=== PATIENT | female | born 1985 | race Caucasian/White ===

== ENCOUNTER 2016-06-22 19:17 | Inpatient (IN) | payer BC ==
[2016-06-22] MEDS ORDERED: Sodium Chloride 0.9% 10 ML Syringe FLUSH PRN (20:12)
[2016-06-22] MEDS ORDERED: Nalbuphine 20 MG/1 ML Amp IVPUSH PRN (20:12)
[2016-06-22] MEDS ORDERED: Acetaminophen 325 MG Tab PO PRN (20:12)
[2016-06-22] MEDS ORDERED: Ondansetron 4 MG/2 ML SDV IVPUSH PRN (20:12)
[2016-06-22] MEDS ORDERED: Oxytocin/Lactated Ringers 10 UNIT/1,000 ML BAG IV SCH (20:15)
[2016-06-22] MEDS ORDERED: Penicillin G Potassium 5 MILLUNITS in Sodium Chloride 0.9% 100 ML IV ONE (20:15)
--- NOTE | 2016-06-22 20:29 | PCM.LDHP ---
L&D History of Present Illness - General Date of Service: 06/22/16 Admit Problem/Dx: Patient Status Order with Admit Dx/Problem 06/22/16 20:13 Patient Status [ADT] Routine Patient Status: Refer to Observation Admission Diagnosis/Problem: Twin Reason for Admit: preeclampsia Nurse Unit Type: Labor and Delivery Admitting Physician: Rhonda Zamora Attending Physician: Rhonda Zamora Medicare 96 Hour Certification Statement: This Patient is Admitted for Inpatient Services and is Medically Appropriate and Meets Medical Necessity for Inpatient Admission. I Reasonably Expect the Patient Will Require Inpatient Services That Span a Period of Time Over 2 Midnights. My Rationale for Medically Necessary Inpatient Care Will Be Found in the Admission History & Physical and Progress Notes. I Reasonably Expect the Patient to be Discharged or Transferred Within 96 Hours After Admission to This [facility] Hospital. Admission Diagnosis/Problem Admission Diagnosis/Problem Twin Source of Information: Patient History Limitations: Reports: No limitations - History of Present Illness Introduction:: Patient is a 31 y/o at 36 6/7 wks in a di-di twin gestation who presents tonight for IOL for gestational HTN. Has been doing very well this . In the last few weeks started to have some upper limit of normal BP's in clinic. Yesterday in clinic noted on/off symptoms of headaches. Was sent to L& D where serial BP's showed intermittent mild range values. Laboratory testing normal. She was counseled on findings and informed of need for IOL at 37 weeks. She is otherwise doing well. Notes good FM from both babies. No other concerns. 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: 0 - Infectious Disease History Infectious Disease History: Reports: Chicken pox - Past Surgical History HEENT Surgical History: Reports: Oral surgery Female Surgical History: Reports: Breast reconstruction Social & Family History - Family History Family Medical History: Noncontributory - Tobacco Use Smoking Status *Q: Never Smoker - Alcohol Use Alcohol Use History: No - Recreational Drug Use Recreational Drug Use: No H&P Review of Systems - Review of Systems: Review Of Systems: See Below General: Reports: no symptoms Pulmonary: Reports: No Symptoms Cardiovascular: Reports: no symptoms Gastrointestinal: Reports: No symptoms Genitourinary: Reports: no symptoms Musculoskeletal: Reports: no symptoms Psychiatric: Reports: no symptoms L&D Exam - Exam Exam: See Below - Vital Signs Weight: 68.039 kg - OB Specific Contraction Intensity: Irritability movement: active heart tones: present heart tones per min: 125 (A; 130 B) Heart Rate (FHR) Variability: Moderate (6-25 bmp) Presentation: Vertex (Vertex/Vertex) - Dyson Score Dyson Score Cervix Position: Midposition Dyson Score Consistency: Soft Dyson Score Effacement: >80% Dyson Score Dilation: 3-4 cm Dyson Score 's Station: -1 ,0 Dyson Score Total: 10 - Exam General: alert, oriented, cooperative Lungs: Clear to auscultation, Normal respiratory effort Cardiovascular: regular rate, regular rhythm Abdomen: soft Genitourinary: Normal external exam Back Exam: normal inspection Extremities: normal inspection Skin: warm, dry, intact - Patient Data Result Diagrams: 06/22/16 20:49 06/22/16 20:49 - Problem List (1) Gestational hypertension SNOMED Code(s): 59743879 ICD Code: O13.9 - GESTATIONAL HTN W/O SIGNIFICANT PROTEINURIA, UNSP TRIMESTER Status: Acute Current Visit: Yes Qualifiers: Trimester: third trimester Qualified Code(s): O13.3 - Gestational [ -induced] hypertension without significant proteinuria, third trimester (2) Dichorionic diamniotic twin gestation SNOMED Code(s): 21212915 ICD Code: O30.049 - TWIN , DICHORIONIC/DIAMNIOTIC, UNSP TRIMESTER Status: Acute Current Visit: Yes Qualifiers: Trimester: third trimester Qualified Code(s): O30.043 - Twin , dichorionic/diamniotic, third trimester (3) 37 weeks gestation of SNOMED Code(s): 21984088 ICD Code: Z3A.37 - 37 WEEKS GESTATION OF Status: Acute Current Visit: Yes (4) GBS (group B Streptococcus carrier), +RV culture, currently SNOMED Code(s): 46209005, 824152791 ICD Code: O99.820 - STREPTOCOCCUS B CARRIER STATE COMPLICATING Status: Acute Current Visit: Yes (5) choroid plexus cysts affecting antepartum care of mother SNOMED Code(s): 7298685, 374977346 ICD Code: O35.8XX0 - MATERNAL CARE FOR OTH ABNORMALITY AND DAMAGE, UNSP Status: Acute Current Visit: Yes Problem List Initiated/Reviewed/Updated: Yes Orders Last 24hrs: Active Orders 24 hr Category Date Time Status Patient Status [ADT] Routine ADT 06/22/16 20:13 Ordered Activity as Tolerated [RC] PFP Care 06/22/16 20:02 Ordered Communication Order [RC] ASDIRECTED Care 06/22/16 20:02 Ordered Communication Order [RC] ASDIRECTED Care 06/22/16 20:02 Ordered Heart Tones [RC] ASDIRECTED Care 06/22/16 20:13 Ordered Monitoring [RC] INTERMITTENT Care 06/22/16 20:02 Ordered Notify Provider [RC] ASDIRECTED Care 06/22/16 20:02 Ordered Notify Provider [RC] PFP Care 06/22/16 20:02 Ordered Notify Provider [RC] PRN Care 06/22/16 20:02 Ordered Peripheral IV Care [RC] . DIRECTED Care 06/22/16 20:13 Ordered Vaginal Exam [RC] ASDIRECTED Care 06/22/16 20:02 Ordered Vital Signs [RC] PER UNIT ROUTINE Care 06/22/16 20:02 Ordered Regular Diet [DIET] Diet 06/22/16 Dinner Ordered ALANINE AMINOTRANSFERASE,ALT [CHEM] Routine Lab 06/22/16 20:12 Ordered ASPARTATE AMNIOTRANSFERASE,AST [CHEM] Routine Lab 06/22/16 20:12 Ordered CBC W/O DIFF,HEMOGRAM [HEME] Routine Lab 06/22/16 20:12 Ordered CREATININE W/GFR [CHEM] Routine Lab 06/22/16 20:12 Ordered TYPE AND SCREEN [BBK] Routine Lab 06/22/16 20:12 Ordered Acetaminophen [Tylenol] Med 06/22/16 20:12 Ordered 650 mg PO Q4H PRN Lactated Ringers [Ringers, Lactated] 1,000 ml Med 06/22/16 20:15 Ordered IV ASDIRECTED Misoprostol [Cytotec] Med 06/22/16 21:29 Once 25 mcg VAG ONETIME ONE Nalbuphine [Nubain] Med 06/22/16 20:12 Ordered 10 mg IVPUSH Q2H PRN Ondansetron [Zofran] Med 06/22/16 20:12 Ordered 4 mg IVPUSH Q4H PRN Oxytocin/Lactated Ringers [Pitocin in LR 10 Units/1,000 Med 06/22/16 20:15 Ordered ML] 10 unit in 1,000 ml IV TITRATE Penicillin G Potassium [Pfizerpen] 2.5 millunits Med 06/22/16 20:15 Ordered Sodium Chloride 0.9% [Normal Saline] 100 ml IV Q4H Penicillin G Potassium [Pfizerpen] 5 millunits Med 06/22/16 20:15 Ordered Sodium Chloride 0.9% [Normal Saline] 100 ml IV ONETIME Sodium Chloride 0.9% [Saline Flush] Med 06/22/16 20:12 Ordered 10 ml FLUSH ASDIRECTED PRN Electronic Heart Tones Ext w TOCO [WOMSER] Oth 06/22/16 20:02 Ordered Routine Electronic Heart Tones Internal [WOMSER] Per Unit Ot 06/22/16 20:02 Ordered Routine Peripheral IV Insertion Adult [OM.PC] Routine Oth 06/22/16 20:02 Ordered Resuscitation Status Routine Resus Stat 06/22/16 20:01 Ordered Medication Orders Acetaminophen (Tylenol) 650 mg PO Q4H PRN PRN Reason: Pain (Mild 1-3) and fever Lactated Ringer's (Ringers, Lactated) 1,000 mls @ 40 mls/hr IV ASDIRECTED ASIM Oxytocin/Lactated Ringer's (Pitocin In Lr 10 Units/1,000 Ml) 10 unit in 1,000 mls @ 500 mls/hr IV TITRATE ASIM PRN Reason: Protocol Penicillin G Potassium 5 (millunits/ Sodium Chloride) 100 mls @ 55 mls/hr IV ONETIME ONE Stop: 06/22/16 22:04 Penicillin G Potassium 2.5 (millunits/ Sodium Chloride) 100 mls @ 55 mls/hr IV Q4H ASIM Nalbuphine HCl (Nubain) 10 mg IVPUSH Q2H PRN PRN Reason: Pain (moderate 4-6) Ondansetron HCl (Zofran) 4 mg IVPUSH Q4H PRN PRN Reason: Nausea/Vomiting Sodium Chloride (Saline Flush) 10 ml FLUSH ASDIRECTED PRN PRN Reason: Keep Vein Open Assessment/Plan Comment:: 31 y/o at 36 6/7 wks in di-di twin gestation presents for IOL for gestational HTN. Repeat labs on admission. Serial BP's. Discussed different methods of induction and patient ultimately feels most comfortable with cytotec. Will reassess after first dose to see how moving forward. Will need antibiotics for GBS positive status once in more active labor pattern. Pain management per her preference. Anticipate as twins are in VTX/VTX presentation. She is aware of risk for second twin or possible need for breech extractions. Last US done 06/21 showed A to be 2592 grams and B to be 2632. She did receive BMTZ on 06/14 and 06/15.
--- NOTE | 2016-06-22 21:09 | PCM.PREANE ---
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 Musculoskeletal History: Breast Implants - Infectious Disease History Infectious Disease History: Reports: Chicken pox - SUBSTANCE USE Smoking Status *Q: Never Smoker Tobacco Use Within Last Twelve Months: No Second Hand Smoke Exposure: No Recreational Drug Use History: No - HOME MEDS Home Medications: Home Meds Plexus 1 tab PO DAILY 12/04/15 [History] - CURRENT (IN HOUSE) MEDS Current Meds: Current Medications Acetaminophen (Tylenol) 650 mg PO Q4H PRN PRN Reason: Pain (Mild 1-3) and fever Lactated Ringer's (Ringers, Lactated) 1,000 mls @ 40 mls/hr IV ASDIRECTED ASIM Oxytocin/Lactated Ringer's (Pitocin In Lr 10 Units/1,000 Ml) 10 unit in 1,000 mls @ 500 mls/hr IV TITRATE ASIM PRN Reason: Protocol Penicillin G Potassium 5 (millunits/ Sodium Chloride) 100 mls @ 55 mls/hr IV ONETIME ONE Stop: 06/22/16 22:04 Penicillin G Potassium 2.5 (millunits/ Sodium Chloride) 100 mls @ 55 mls/hr IV Q4H ASIM Misoprostol (Cytotec) 25 mcg VAG ONETIME ONE Stop: 06/22/16 21:30 Nalbuphine HCl (Nubain) 10 mg IVPUSH Q2H PRN PRN Reason: Pain (moderate 4-6) Ondansetron HCl (Zofran) 4 mg IVPUSH Q4H PRN PRN Reason: Nausea/Vomiting Sodium Chloride (Saline Flush) 10 ml FLUSH ASDIRECTED PRN PRN Reason: Keep Vein Open Preanesthetic Assessment - ANESTHESIA/TRANSFUSION/FAMILY HX Anesthesia/Transfusion History: No Prior Transfusion(s), Prior Anesthesia Type of Anesthesia Reaction: Reports: Excessive Nausea/Vomiting Family History of Anesthesia Reaction: No Intubation History: Unknown Type of Transfusion Reactions: Reports: Unknown - REVIEW OF SYSTEMS Constitutional: Reports: no symptoms 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 Does not take any medications. ) GI: Reports: no symptoms (GERD controlled with TUMs) - PHYSICAL ASSESSMENT HR: 93 O2 Sat by Pulse Oximetry: 97 RR: 22 BP: 140/83 Temp: 36.9 C Height: 1.7 m Weight: 68.039 kg NPO Status Date: 06/22/16 NPO Status Time: 19:00 ASA Class: 2 Mental Status: Alert & Oriented x3 Airway Class: Mallampati = 1 Dentition: Reports: Normal Dentition Thyro-Mental Finger Breadths: 3 Mouth Opening Finger Breadths: 3 ROM/Head Extension: Full Respiratory Status: lungs clear to auscultation bilaterally Cardiovascular Status: regular rate & rhythm, normal S1, S2, no murmur, blood pressure WNL - ALLERGIES Allergies/Adverse Reactions: Allergies Allergy/AdvReac Type Severity Reaction Status Date / Time No Known Allergies Allergy Verified 12/04/15 18:13 - BLOOD Blood Available: No Product(s) Available: None - ANESTHESIA PLAN Preop Beta [place]: No Anesthesia Type Planned: Epidural - ACKNOWLEDGEMENTS Pt an Appropriate Candidate for the Planned Anesthesia: Yes Alternatives and Risks of Anesthesia Discussed w Pt/Guardian: Yes Pt/Guardian Understands and Agrees with Anesthesia Plan: Yes
[2016-06-22] MEDS ORDERED: Misoprostol 25 MCG (1/4 of 100 MCG) Tab VAG ONE (21:29)
[2016-06-23] MEDS ORDERED: Misoprostol 25 MCG (1/4 of 100 MCG) Tab ONE (03:03)
--- NOTE | 2016-06-23 06:54 | PCM.PNLD ---
Labor Progress Note - VS & Meds Vital Signs: Last Vital Signs Temp 36.9 C 06/22/16 21:12 Pulse 93 06/22/16 21:12 Resp 22 H 06/22/16 21:12 BP 140/83 06/22/16 21:12 Pulse Ox 97 06/22/16 21:12 Active Medications: Current Medications Acetaminophen (Tylenol) 650 mg PO Q4H PRN PRN Reason: Pain (Mild 1-3) and fever Lactated Ringer's (Ringers, Lactated) 1,000 mls @ 40 mls/hr IV ASDIRECTED ASIM Oxytocin/Lactated Ringer's (Pitocin In Lr 10 Units/1,000 Ml) 10 unit in 1,000 mls @ 500 mls/hr IV TITRATE ASIM PRN Reason: Protocol Penicillin G Potassium 2.5 (millunits/ Sodium Chloride) 100 mls @ 55 mls/hr IV Q4H ASIM Nalbuphine HCl (Nubain) 10 mg IVPUSH Q2H PRN PRN Reason: Pain (moderate 4-6) Ondansetron HCl (Zofran) 4 mg IVPUSH Q4H PRN PRN Reason: Nausea/Vomiting Sodium Chloride (Saline Flush) 10 ml FLUSH ASDIRECTED PRN PRN Reason: Keep Vein Open Discontinued Medications Penicillin G Potassium 5 (millunits/ Sodium Chloride) 100 mls @ 55 mls/hr IV ONETIME ONE Stop: 06/22/16 22:04 Misoprostol (Cytotec) 25 mcg VAG ONETIME ONE Stop: 06/22/16 21:30 Last Admin: 06/22/16 21:51 Dose: 25 mcg Misoprostol (Cytotec) Confirm Administered Dose 25 mcg .ROUTE .STK-MED ONE Stop: 06/23/16 03:04 Last Admin: 06/23/16 03:24 Dose: 25 mcg - Uterine Contractions Uterine Monitoring Mode: External [place] Contraction Intensity: Mild - Monitoring Monitor Mode: External Ultrasound Heart Rate (FHR) Baseline: 125 (A, B 130) Heart Rate (FHR) Variability: Moderate (6-25 bmp) Accelerations: Present, 15x15 Decelerations: None Strip Review: Category I - Labor Progress (Free Text) Labor Progress: Patient received 2 doses of cytotec overnight. Did not feel much cramping or pain. Will switch to pitocin this morning. Ampicillin to be started for GBS prophylaxis.
[2016-06-23] MEDS: Lactated Ringers 1,000 ML IV SCH ×5 (07:27→21:58)
[2016-06-23] MEDS ORDERED: Oxytocin/Lactated Ringers 10 UNIT/1,000 ML BAG IV SCH (07:30)
[2016-06-23] MEDS ORDERED: Ampicillin 2 GM in Sodium Chloride 0.9% 100 ML IV SCH (09:00)
[2016-06-23] MEDS: Penicillin G Potassium 2.5 MILLUNITS in Sodium Chloride 0.9% 100 ML IV SCH (09:01)
[2016-06-23] MEDS ORDERED: Penicillin G Potassium 5 MILLUNITS in Sodium Chloride 0.9% 100 ML IV ONE (09:15)
--- NOTE | 2016-06-23 09:51 | PCM.PNLD ---
Labor Progress Note - VS & Meds Vital Signs: Last Vital Signs Temp 36.9 C 06/22/16 21:12 Pulse 93 06/22/16 21:12 Resp 22 H 06/22/16 21:12 BP 140/83 06/22/16 21:12 Pulse Ox 97 06/22/16 21:12 Active Medications: Current Medications Acetaminophen (Tylenol) 650 mg PO Q4H PRN PRN Reason: Pain (Mild 1-3) and fever Lactated Ringer's (Ringers, Lactated) 1,000 mls @ 40 mls/hr IV ASDIRECTED ASIM Last Admin: 06/23/16 07:27 Dose: 40 mls/hr Oxytocin/Lactated Ringer's (Pitocin In Lr 10 Units/1,000 Ml) 10 unit in 1,000 mls @ 500 mls/hr IV TITRATE ASIM PRN Reason: Protocol Oxytocin/Lactated Ringer's (Pitocin In Lr 10 Units/1,000 Ml) 10 unit in 1,000 mls @ 12 mls/hr IV TITRATE ASIM; 2 MUNITS/MIN PRN Reason: Protocol Last Titration: 06/23/16 09:10 Dose: 6 munits/min, 36 mls/hr Ampicillin Sodium 2 gm/ Sodium (Chloride) 100 mls @ 200 mls/hr IV NOW [facility] Last Admin: 06/23/16 09:09 Dose: 200 mls/hr Ampicillin Sodium 1 gm/ Sodium (Chloride) 100 mls @ 200 mls/hr IV Q4H AISM Nalbuphine HCl (Nubain) 10 mg IVPUSH Q2H PRN PRN Reason: Pain (moderate 4-6) Ondansetron HCl (Zofran) 4 mg IVPUSH Q4H PRN PRN Reason: Nausea/Vomiting Sodium Chloride (Saline Flush) 10 ml FLUSH ASDIRECTED PRN PRN Reason: Keep Vein Open Discontinued Medications Penicillin G Potassium 5 (millunits/ Sodium Chloride) 100 mls @ 55 mls/hr IV ONETIME ONE Stop: 06/22/16 22:04 Last Admin: 06/23/16 09:00 Dose: Not Given Penicillin G Potassium 2.5 (millunits/ Sodium Chloride) 100 mls @ 55 mls/hr IV Q4H ASIM Last Admin: 06/23/16 09:01 Dose: Not Given Penicillin G Potassium 5 (millunits/ Sodium Chloride) 100 mls @ 55 mls/hr IV ONETIME ONE Stop: 06/23/16 11:04 Misoprostol (Cytotec) 25 mcg VAG ONETIME ONE Stop: 06/22/16 21:30 Last Admin: 06/22/16 21:51 Dose: 25 mcg Misoprostol (Cytotec) Confirm Administered Dose 25 mcg .ROUTE .STK-MED ONE Stop: 06/23/16 03:04 Last Admin: 06/23/16 03:24 Dose: 25 mcg - Uterine Contractions Uterine Monitoring Mode: External [place] Contraction Intensity: Mild to Moderate - Monitoring Monitor Mode: External Ultrasound Heart Rate (FHR) Baseline: 130 (A, B 130) Heart Rate (FHR) Variability: Moderate (6-25 bmp) Accelerations: Present, 15x15 Decelerations: None Strip Review: Category I - Vaginal Exam Dilation (cm): 3-4 Effacement (Percent): 80 Station: -1 Cervical Position: Midposition - Labor Progress (Free Text) Labor Progress: Patient doing well. Noticing some cramping with pitocin. AROM performed of baby A with release of clear fluid. Continue Ampicillin for GBS prophylaxis
[2016-06-23] MEDS ORDERED: ePHEDrine 50 MG/ML SDV IVPUSH PRN (11:24)
[2016-06-23] MEDS ORDERED: diphenhydrAMINE 50 MG/ML SDV IVPUSH PRN (11:24)
[2016-06-23] MEDS ORDERED: fentaNYL 100 MCG/2 ML SDV EPIDUR PRN (11:24)
[2016-06-23] MEDS ORDERED: Bupivacaine/fentaNYL/NS 100 ML Bag EPIDUR SCH (11:30)
--- NOTE | 2016-06-23 12:36 | PCM.PNLD ---
Labor Progress Note - VS & Meds Vital Signs: Last Vital Signs Temp 36.9 C 06/22/16 21:12 Pulse 93 06/22/16 21:12 Resp 22 H 06/22/16 21:12 BP 140/83 06/22/16 21:12 Pulse Ox 97 06/22/16 21:12 Active Medications: Current Medications Acetaminophen (Tylenol) 650 mg PO Q4H PRN PRN Reason: Pain (Mild 1-3) and fever Diphenhydramine HCl (Benadryl) 25 mg IVPUSH Q6H PRN PRN Reason: Itching Ephedrine Sulfate (Ephedrine Sulfate) 5 mg IVPUSH ASDIRECTED PRN PRN Reason: HYPOTENTSION Fentanyl (Sublimaze) 100 mcg EPIDUR Q3H PRN PRN Reason: PAIN Fentanyl/Bupivacaine HCl (Fentanyl/Bupivacaine/Ns 2 Mcg-0.125% 100 Ml) 100 ml EPIDUR ASDIRECTED ASIM Lactated Ringer's (Ringers, Lactated) 1,000 mls @ 40 mls/hr IV ASDIRECTED ASIM Last Admin: 06/23/16 07:27 Dose: 40 mls/hr Oxytocin/Lactated Ringer's (Pitocin In Lr 10 Units/1,000 Ml) 10 unit in 1,000 mls @ 500 mls/hr IV TITRATE ASIM PRN Reason: Protocol Oxytocin/Lactated Ringer's (Pitocin In Lr 10 Units/1,000 Ml) 10 unit in 1,000 mls @ 12 mls/hr IV TITRATE ASIM; 2 MUNITS/MIN PRN Reason: Protocol Last Titration: 06/23/16 10:28 Dose: 8 munits/min, 48 mls/hr Ampicillin Sodium 2 gm/ Sodium (Chloride) 100 mls @ 200 mls/hr IV NOW ASIM Last Admin: 06/23/16 09:09 Dose: 200 mls/hr Ampicillin Sodium 1 gm/ Sodium (Chloride) 100 mls @ 200 mls/hr IV Q4H ASIM Nalbuphine HCl (Nubain) 10 mg IVPUSH Q2H PRN PRN Reason: Pain (moderate 4-6) Ondansetron HCl (Zofran) 4 mg IVPUSH Q4H PRN PRN Reason: Nausea/Vomiting Sodium Chloride (Saline Flush) 10 ml FLUSH ASDIRECTED PRN PRN Reason: Keep Vein Open Discontinued Medications Penicillin G Potassium 5 (millunits/ Sodium Chloride) 100 mls @ 55 mls/hr IV ONETIME ONE Stop: 06/22/16 22:04 Last Admin: 06/23/16 09:00 Dose: Not Given Penicillin G Potassium 2.5 (millunits/ Sodium Chloride) 100 mls @ 55 mls/hr IV Q4H ASIM Last Admin: 06/23/16 09:01 Dose: Not Given Penicillin G Potassium 5 (millunits/ Sodium Chloride) 100 mls @ 55 mls/hr IV ONETIME ONE Stop: 06/23/16 11:04 Misoprostol (Cytotec) 25 mcg VAG ONETIME ONE Stop: 06/22/16 21:30 Last Admin: 06/22/16 21:51 Dose: 25 mcg Misoprostol (Cytotec) Confirm Administered Dose 25 mcg .ROUTE .STK-MED ONE Stop: 06/23/16 03:04 Last Admin: 06/23/16 03:24 Dose: 25 mcg - Uterine Contractions Uterine Monitoring Mode: External [place] Contraction Intensity: Moderate to Strong - Monitoring Monitor Mode: External Ultrasound Heart Rate (FHR) Baseline: 130 (A, B 135) Heart Rate (FHR) Variability: Moderate (6-25 bmp) Accelerations: Present, 15x15 Decelerations: Early Strip Review: Category I - Vaginal Exam Dilation (cm): 5 Effacement (Percent): 90 Station: 0 Cervical Position: Midposition - Labor Progress (Free Text) Labor Progress: Patient doing well. Feeling more uncomfortable with contractions. Continue present management.
[2016-06-23] MEDS: Ampicillin 1 GM in Sodium Chloride 0.9% 100 ML IV SCH ×3 (12:54→21:56)
--- NOTE | 2016-06-23 13:41 | PCM.PNLD ---
Labor Progress Note - VS & Meds Vital Signs: Last Vital Signs Temp 36.9 C 06/22/16 21:12 Pulse 93 06/22/16 21:12 Resp 22 H 06/22/16 21:12 BP 140/83 06/22/16 21:12 Pulse Ox 97 06/22/16 21:12 Active Medications: Current Medications Acetaminophen (Tylenol) 650 mg PO Q4H PRN PRN Reason: Pain (Mild 1-3) and fever Diphenhydramine HCl (Benadryl) 25 mg IVPUSH Q6H PRN PRN Reason: Itching Ephedrine Sulfate (Ephedrine Sulfate) 5 mg IVPUSH ASDIRECTED PRN PRN Reason: HYPOTENTSION Fentanyl (Sublimaze) 100 mcg EPIDUR Q3H PRN PRN Reason: PAIN Fentanyl/Bupivacaine HCl (Fentanyl/Bupivacaine/Ns 2 Mcg-0.125% 100 Ml) 100 ml EPIDUR ASDIRECTED ASIM Lactated Ringer's (Ringers, Lactated) 1,000 mls @ 40 mls/hr IV ASDIRECTED ASIM Last Admin: 06/23/16 07:27 Dose: 40 mls/hr Oxytocin/Lactated Ringer's (Pitocin In Lr 10 Units/1,000 Ml) 10 unit in 1,000 mls @ 500 mls/hr IV TITRATE ASIM PRN Reason: Protocol Oxytocin/Lactated Ringer's (Pitocin In Lr 10 Units/1,000 Ml) 10 unit in 1,000 mls @ 12 mls/hr IV TITRATE ASIM; 2 MUNITS/MIN PRN Reason: Protocol Last Titration: 06/23/16 10:28 Dose: 8 munits/min, 48 mls/hr Ampicillin Sodium 2 gm/ Sodium (Chloride) 100 mls @ 200 mls/hr IV NOW ASIM Last Admin: 06/23/16 09:09 Dose: 200 mls/hr Ampicillin Sodium 1 gm/ Sodium (Chloride) 100 mls @ 200 mls/hr IV Q4H ASIM Last Admin: 06/23/16 12:54 Dose: 200 mls/hr Nalbuphine HCl (Nubain) 10 mg IVPUSH Q2H PRN PRN Reason: Pain (moderate 4-6) Last Admin: 06/23/16 13:21 Dose: 10 mg Ondansetron HCl (Zofran) 4 mg IVPUSH Q4H PRN PRN Reason: Nausea/Vomiting Sodium Chloride (Saline Flush) 10 ml FLUSH ASDIRECTED PRN PRN Reason: Keep Vein Open Discontinued Medications Penicillin G Potassium 5 (millunits/ Sodium Chloride) 100 mls @ 55 mls/hr IV ONETIME ONE Stop: 06/22/16 22:04 Last Admin: 06/23/16 09:00 Dose: Not Given Penicillin G Potassium 2.5 (millunits/ Sodium Chloride) 100 mls @ 55 mls/hr IV Q4H [facility] Last Admin: 06/23/16 09:01 Dose: Not Given Penicillin G Potassium 5 (millunits/ Sodium Chloride) 100 mls @ 55 mls/hr IV ONETIME ONE Stop: 06/23/16 11:04 Misoprostol (Cytotec) 25 mcg VAG ONETIME ONE Stop: 06/22/16 21:30 Last Admin: 06/22/16 21:51 Dose: 25 mcg Misoprostol (Cytotec) Confirm Administered Dose 25 mcg .ROUTE .STK-MED ONE Stop: 06/23/16 03:04 Last Admin: 06/23/16 03:24 Dose: 25 mcg - Uterine Contractions Uterine Monitoring Mode: External [place] Contraction Intensity: Moderate to Strong - Monitoring Monitor Mode: External Ultrasound Heart Rate (FHR) Baseline: 130 (A, B 130) Heart Rate (FHR) Variability: Moderate (6-25 bmp) Accelerations: Present, 15x15 Decelerations: Early Strip Review: Category I - Vaginal Exam Dilation (cm): 6-7 Effacement (Percent): 90 Station: 0 Cervical Position: Midposition - Labor Progress (Free Text) Labor Progress: Patient doing well. Managing labor well. Received 1 dose of nubain. S/p 2nd dose of Ampicillin. Continue present management.
--- NOTE | 2016-06-23 15:23 | PCM.PREANE ---
Preanesthetic Assessment - Anesthesia/Transfusion/Family Hx Anesthesia History: Prior Anesthesia Without Reaction Family History of Anesthesia Reaction: No Type of Transfusion Reactions: Reports: Unknown - Review of Systems General: Fatigue Pulmonary: No Symptoms Cardiovascular: No Symptoms Gastrointestinal: No symptoms Neurological: Numbness (rosibel hands) Other: Reports: None - Physical Assessment NPO Status Date: 06/22/16 NPO Status Time: 19:00 Pulse: 93 O2 Sat by Pulse Oximetry: 97 Respiratory Rate: 22 Blood Pressure: 140/83 Temperature: 36.9 C Vital Signs: Last Vital Signs Temp 36.9 C 06/22/16 21:12 Pulse 93 06/22/16 21:12 Resp 22 H 06/22/16 21:12 BP 140/83 06/22/16 21:12 Pulse Ox 97 06/22/16 21:12 Height: 1.7 m Weight: 68.039 kg ASA Class: 2 Mental Status: Alert & Oriented x3 Airway Class: Mallampati = 1 Dentition: Reports: Normal Dentition Thyro-Mental Finger Breadths: 3 Mouth Opening Finger Breadths: 3 ROM/Head Extension: Full Lungs: Clear to auscultation, Normal respiratory effort Cardiovascular: Regular Rate, Regular Rhythm - Lab Values: Laboratory Last Values WBC 9.44 K/mm3 (3.98-10.04) 06/22/16 20:49 RBC 3.66 M/mm3 (3.98-5.22) L 06/22/16 20:49 Hgb 11.9 gm/L (11.2-15.7) 06/22/16 20:49 Hct 35.1 % (34.1-44.9) 06/22/16 20:49 MCV 95.9 fl (79.4-94.8) H 06/22/16 20:49 MCH 32.5 pg (25.6-32.2) H 06/22/16 20:49 MCHC 33.9 g/dl (32.2-35.5) 06/22/16 20:49 RDW Std Deviation 44.0 fL (36.4-46.3) 06/22/16 20:49 Plt Count 210 K/mm3 (182-369) 06/22/16 20:49 MPV 12.3 fl (9.4-12.3) 06/22/16 20:49 Creatinine 0.9 mg/dL (0.55-1.02) 06/22/16 20:49 Est Cr Clr Drug Dosing 86.46 mL/min 06/22/16 20:49 Estimated GFR (MDRD) > 60 mL/min (>60) 06/22/16 20:49 AST 19 U/L (15-37) 06/22/16 20:49 ALT 16 U/L (14-59) 06/22/16 20:49 Blood Type A POSITIVE 06/22/16 20:49 Gel Antibody Screen Negative 06/22/16 20:49 - Allergies Allergies/Adverse Reactions: Allergies Allergy/AdvReac Type Severity Reaction Status Date / Time No Known Allergies Allergy Verified 12/04/15 18:13 - Blood Blood Available: No Product(s) Available: None - Acknowledgements Anesthesia Type Planned: Epidural Pt an Appropriate Candidate for the Planned Anesthesia: Yes Alternatives and Risks of Anesthesia Discussed w Pt/Guardian: Yes Pt/Guardian Understands and Agrees with Anesthesia Plan: Yes PreAnesthesia Questionnaire 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: Reports: Other OB/BYN History: twins Other Musculoskeletal History: Breast Implants - Infectious Disease History Infectious Disease History: Reports: Chicken pox - Past Surgical History HEENT Surgical History: Reports: Oral surgery Female Surgical History: Reports: Breast reconstruction - SUBSTANCE USE Smoking Status *Q: Never Smoker Tobacco Use Within Last Twelve Months: No Second Hand Smoke Exposure: No Recreational Drug Use History: No - HOME MEDS Home Medications: Home Meds Plexus 1 tab PO DAILY 12/04/15 [History] - CURRENT (IN HOUSE) MEDS Current Meds: Current Medications Acetaminophen (Tylenol) 650 mg PO Q4H PRN PRN Reason: Pain (Mild 1-3) and fever Diphenhydramine HCl (Benadryl) 25 mg IVPUSH Q6H PRN PRN Reason: Itching Ephedrine Sulfate (Ephedrine Sulfate) 5 mg IVPUSH ASDIRECTED PRN PRN Reason: HYPOTENTSION Fentanyl (Sublimaze) 100 mcg EPIDUR Q3H PRN PRN Reason: PAIN Last Admin: 06/23/16 15:11 Dose: 100 mcg Fentanyl/Bupivacaine HCl (Fentanyl/Bupivacaine/Ns 2 Mcg-0.125% 100 Ml) 100 ml EPIDUR ASDIRECTED ASIM Last Admin: 06/23/16 15:11 Dose: 100 ml Lactated Ringer's (Ringers, Lactated) 1,000 mls @ 40 mls/hr IV ASDIRECTED ASIM Last Admin: 06/23/16 07:27 Dose: 40 mls/hr Oxytocin/Lactated Ringer's (Pitocin In Lr 10 Units/1,000 Ml) 10 unit in 1,000 mls @ 500 mls/hr IV TITRATE ASIM PRN Reason: Protocol Oxytocin/Lactated Ringer's (Pitocin In Lr 10 Units/1,000 Ml) 10 unit in 1,000 mls @ 12 mls/hr IV TITRATE ASIM; 2 MUNITS/MIN PRN Reason: Protocol Last Titration: 06/23/16 10:28 Dose: 8 munits/min, 48 mls/hr Ampicillin Sodium 2 gm/ Sodium (Chloride) 100 mls @ 200 mls/hr IV NOW [facility] Last Admin: 06/23/16 09:09 Dose: 200 mls/hr Ampicillin Sodium 1 gm/ Sodium (Chloride) 100 mls @ 200 mls/hr IV Q4H [facility] Last Admin: 06/23/16 12:54 Dose: 200 mls/hr Nalbuphine HCl (Nubain) 10 mg IVPUSH Q2H PRN PRN Reason: Pain (moderate 4-6) Last Admin: 06/23/16 13:21 Dose: 10 mg Ondansetron HCl (Zofran) 4 mg IVPUSH Q4H PRN PRN Reason: Nausea/Vomiting Sodium Chloride (Saline Flush) 10 ml FLUSH ASDIRECTED PRN PRN Reason: Keep Vein Open Discontinued Medications Penicillin G Potassium 5 (millunits/ Sodium Chloride) 100 mls @ 55 mls/hr IV ONETIME ONE Stop: 06/22/16 22:04 Last Admin: 06/23/16 09:00 Dose: Not Given Penicillin G Potassium 2.5 (millunits/ Sodium Chloride) 100 mls @ 55 mls/hr IV Q4H [facility] Last Admin: 06/23/16 09:01 Dose: Not Given Penicillin G Potassium 5 (millunits/ Sodium Chloride) 100 mls @ 55 mls/hr IV ONETIME ONE Stop: 06/23/16 11:04 Misoprostol (Cytotec) 25 mcg VAG ONETIME ONE Stop: 06/22/16 21:30 Last Admin: 06/22/16 21:51 Dose: 25 mcg Misoprostol (Cytotec) Confirm Administered Dose 25 mcg .ROUTE .STK-MED ONE Stop: 06/23/16 03:04 Last Admin: 06/23/16 03:24 Dose: 25 mcg Preanesthetic Assessment - ANESTHESIA/TRANSFUSION/FAMILY HX Anesthesia/Transfusion History: No Prior Transfusion(s), Prior Anesthesia Type of Anesthesia Reaction: Reports: Excessive Nausea/Vomiting Family History of Anesthesia Reaction: No Intubation History: Unknown Type of Transfusion Reactions: Reports: Unknown - REVIEW OF SYSTEMS Constitutional: Reports: no symptoms 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 Does not take any medications. ) GI: Reports: no symptoms (GERD controlled with TUMs) - PHYSICAL ASSESSMENT HR: 93 O2 Sat by Pulse Oximetry: 97 RR: 22 BP: 140/83 Temp: 36.9 C Vital Signs: Last Vital Signs Temp 36.9 C 06/22/16 21:12 Pulse 93 06/22/16 21:12 Resp 22 H 06/22/16 21:12 BP 140/83 06/22/16 21:12 Pulse Ox 97 06/22/16 21:12 Height: 1.7 m Weight: 68.039 kg NPO Status Date: 06/22/16 NPO Status Time: 19:00 - LAB Values: Laboratory Last Values WBC 9.44 K/mm3 (3.98-10.04) 06/22/16 20:49 RBC 3.66 M/mm3 (3.98-5.22) L 06/22/16 20:49 Hgb 11.9 gm/L (11.2-15.7) 06/22/16 20:49 Hct 35.1 % (34.1-44.9) 06/22/16 20:49 MCV 95.9 fl (79.4-94.8) H 06/22/16 20:49 MCH 32.5 pg (25.6-32.2) H 06/22/16 20:49 MCHC 33.9 g/dl (32.2-35.5) 06/22/16 20:49 RDW Std Deviation 44.0 fL (36.4-46.3) 06/22/16 20:49 Plt Count 210 K/mm3 (182-369) 06/22/16 20:49 MPV 12.3 fl (9.4-12.3) 06/22/16 20:49 Creatinine 0.9 mg/dL (0.55-1.02) 06/22/16 20:49 Est Cr Clr Drug Dosing 86.46 mL/min 06/22/16 20:49 Estimated GFR (MDRD) > 60 mL/min (>60) 06/22/16 20:49 AST 19 U/L (15-37) 06/22/16 20:49 ALT 16 U/L (14-59) 06/22/16 20:49 Blood Type A POSITIVE 06/22/16 20:49 Gel Antibody Screen Negative 06/22/16 20:49 - ALLERGIES Allergies/Adverse Reactions: Allergies Allergy/AdvReac Type Severity Reaction Status Date / Time No Known Allergies Allergy Verified 12/04/15 18:13 - BLOOD Blood Available: No Product(s) Available: None
[2016-06-23] MEDS ORDERED: Misoprostol 200 MCG Tab ONE (19:29)
[2016-06-23] MEDS ORDERED: Carboprost Tromethamine 250 MCG/1 ML Amp ONE (19:30)
[2016-06-23] MEDS ORDERED: Methylergonovine 0.2 MG/1 ML Amp ONE (19:37)
[2016-06-23] MEDS ORDERED: ceFAZolin 1 GM Vial ONE (19:44)
[2016-06-23] MEDS ORDERED: ceFAZolin 1,000 MG VIAL IVPUSH ONE ×2 (19:50)
[2016-06-23] MEDS ORDERED: Carboprost Tromethamine 250 MCG/1 ML Amp IM ONE (20:50)
[2016-06-23] MEDS ORDERED: Methylergonovine 0.2 MG/1 ML Amp IM ONE (20:50)
[2016-06-23] MEDS ORDERED: Misoprostol 200 MCG Tab PO STA (20:50)
[2016-06-23] MEDS ORDERED: ceFAZolin 2 GM in Premix Bag 1 BAG IV ONE (20:51)
--- NOTE | 2016-06-23 21:00 | PCM.DEL ---
L & D Note - Delivery Note Labor: induced by ARM, induced by oxytocin Cervical Ripening Method: Misoprostil Delivery Outcome: Livebirth Delivery Method: Spontaneous Vaginal Delivery Delivery Mode: Spontaneous Presentation: Right Occiput Posterior (ROP) (ROP for Baby A and ZARINA for Baby B) Nuchal cord: none Anesthesia Type: Epidural Amniotic Fluid Description: Clear Episiotomy Type: None Laceration: 2nd degree, perineal Suture type: vicryl Suture size: 2-0 Placenta: manual removal (After 30 minutes) Cord: 3 vessels Estimated blood loss: 2,500 Resuscitation needed: Yes Delivery Comments (Free Text/Narrative):: Patient found to be complete and began pushing. After approximately 2 hours of pushing Baby A head delivered from an ROP presentation. No nuchal cord present. With gentle downward traction the shoulders and body delivered. placed on maternal abdomen. Cord clamped and cut. Cord blood obtained. Exam then performed and showed Baby B to be in a vertex presentation. AROM performed with release of clear fluid. With maternal pushing effort Baby B head delivered from an ZARINA presentation. No nuchal cord. With gentle downward tractions the shoulders and body delivered. placed on maternal abdomen and cord clamped and cut. Cord blood obtained. At this time gentle traction and intermittent fundal massage performed on the uterus, but did not yield delivery of placentas. After 30 minutes decision made to move towards manual extraction. By this time EBL was thought to be ~ 500 cc. A hand was placed into the uterus and after two attempts placentas thought to be removed mostly intact. Approximately two sweeps of the uterus then performed with a few small pieces of tissue removed. She was given 2 grams of Ancef for this extraction. Immediately after delivery of the placentas she had profound hemorrhage. She was given 600 mcg of buccal cytotec for this and 250 mcg of Hemabate. Uterine bleeding did not respond to this initially. Sweeps of uterus performed and removed large amounts of clots. Decision was ultimately made to give one dose of methergine as BP's for IOL were overall mild and bleeding remained gregory. Uterine tone did finally start to respond. 2 units of PRBC's called for. Assistance from Dr. Sumner also requested who performed an additional 2-3 explorations of the uterus with scant amount of tissue returning. By this time total EBL thought to be ~2500 cc. She did receive a 3rd unit of PRBC. Fluid management done by Anesthesia. See their record for additional detail. - Patient Data Vitals - most recent: Last Vital Signs Temp 36.9 C 06/23/16 15:23 Pulse 93 06/23/16 15:23 Resp 22 H 06/23/16 15:23 BP 140/83 06/23/16 15:23 Pulse Ox 97 06/23/16 15:23 Weight - most recent: 68.039 kg Lab Results last 24 hrs: Laboratory Results - last 24 hr 06/22/16 06/22/16 06/22/16 Range/Units 20:49 20:49 20:49 WBC 9.44 (3.98-10.04) K/mm3 RBC 3.66 L (3.98-5.22) M/mm3 Hgb 11.9 (11.2-15.7) gm/L Hct 35.1 (34.1-44.9) % MCV 95.9 H (79.4-94.8) fl MCH 32.5 H (25.6-32.2) pg MCHC 33.9 (32.2-35.5) g/dl RDW Std Deviation 44.0 (36.4-46.3) fL Plt Count 210 (182-369) K/mm3 MPV 12.3 (9.4-12.3) fl PT (8.0-13.0) SECONDS INR APTT (22-36) SECONDS Creatinine 0.9 (0.55-1.02) mg/dL Est Cr Clr Drug Dosing 86.46 mL/min Estimated GFR (MDRD) > 60 (>60) mL/min AST 19 (15-37) U/L ALT 16 (14-59) U/L Blood Type A POSITIVE Gel Antibody Screen Negative Crossmatch 06/23/16 06/23/16 06/23/16 Range/Units 20:05 20:05 20:05 WBC 10.39 H (3.98-10.04) K/mm3 RBC 2.98 L (3.98-5.22) M/mm3 Hgb 9.7 L (11.2-15.7) gm/L Hct 28.6 L (34.1-44.9) % MCV 96.0 H (79.4-94.8) fl MCH 32.6 H (25.6-32.2) pg MCHC 33.9 (32.2-35.5) g/dl RDW Std Deviation 42.9 (36.4-46.3) fL Plt Count 151 L (182-369) K/mm3 MPV 11.5 (9.4-12.3) fl PT (8.0-13.0) SECONDS INR APTT (22-36) SECONDS Creatinine (0.55-1.02) mg/dL Est Cr Clr Drug Dosing mL/min Estimated GFR (MDRD) (>60) mL/min AST (15-37) U/L ALT (14-59) U/L Blood Type A POSITIVE Gel Antibody Screen Negative Crossmatch See Detail See Detail 06/23/16 Range/Units 20:50 WBC (3.98-10.04) K/mm3 RBC (3.98-5.22) M/mm3 Hgb (11.2-15.7) gm/L Hct (34.1-44.9) % MCV (79.4-94.8) fl MCH (25.6-32.2) pg MCHC (32.2-35.5) g/dl RDW Std Deviation (36.4-46.3) fL Plt Count (182-369) K/mm3 MPV (9.4-12.3) fl PT 10.4 (8.0-13.0) SECONDS INR 0.96 APTT 33 (22-36) SECONDS Creatinine (0.55-1.02) mg/dL Est Cr Clr Drug Dosing mL/min Estimated GFR (MDRD) (>60) mL/min AST (15-37) U/L ALT (14-59) U/L Blood Type Gel Antibody Screen Crossmatch Med Orders - Current: Current Medications Acetaminophen (Tylenol) 650 mg PO Q4H PRN PRN Reason: Pain (Mild 1-3) and fever Diphenhydramine HCl (Benadryl) 25 mg IVPUSH Q6H PRN PRN Reason: Itching Ephedrine Sulfate (Ephedrine Sulfate) 5 mg IVPUSH ASDIRECTED PRN PRN Reason: HYPOTENTSION Fentanyl (Sublimaze) 100 mcg EPIDUR Q3H PRN PRN Reason: PAIN Last Admin: 06/23/16 15:11 Dose: 100 mcg Fentanyl/Bupivacaine HCl (Fentanyl/Bupivacaine/Ns 2 Mcg-0.125% 100 Ml) 100 ml EPIDUR ASDIRECTED [facility] Last Admin: 06/23/16 15:11 Dose: 100 ml Lactated Ringer's (Ringers, Lactated) 1,000 mls @ 40 mls/hr IV ASDIRECTED [facility] Last Admin: 06/23/16 15:38 Dose: 40 mls/hr Oxytocin/Lactated Ringer's (Pitocin In Lr 10 Units/1,000 Ml) 10 unit in 1,000 mls @ 500 mls/hr IV TITRATE ASIM PRN Reason: Protocol Oxytocin/Lactated Ringer's (Pitocin In Lr 10 Units/1,000 Ml) 10 unit in 1,000 mls @ 12 mls/hr IV TITRATE ASIM; 2 MUNITS/MIN PRN Reason: Protocol Last Titration: 06/23/16 10:28 Dose: 8 munits/min, 48 mls/hr Ampicillin Sodium 2 gm/ Sodium (Chloride) 100 mls @ 200 mls/hr IV NOW [facility] Last Admin: 06/23/16 09:09 Dose: 200 mls/hr Ampicillin Sodium 1 gm/ Sodium (Chloride) 100 mls @ 200 mls/hr IV Q4H [facility] Last Admin: 06/23/16 12:54 Dose: 200 mls/hr Cefazolin Sodium/Dextrose 2 gm (/ Premix) 50 mls @ 100 mls/hr IV ONETIME ONE Stop: 06/23/16 21:20 Nalbuphine HCl (Nubain) 10 mg IVPUSH Q2H PRN PRN Reason: Pain (moderate 4-6) Last Admin: 06/23/16 13:21 Dose: 10 mg Ondansetron HCl (Zofran) 4 mg IVPUSH Q4H PRN PRN Reason: Nausea/Vomiting Sodium Chloride (Saline Flush) 10 ml FLUSH ASDIRECTED PRN PRN Reason: Keep Vein Open Discontinued Medications Carboprost Tromethamine (Hemabate Ds) Confirm Administered Dose 250 mcg .ROUTE .STK-MED ONE Stop: 06/23/16 19:31 Carboprost Tromethamine (Hemabate Ds) 250 mcg IM ONETIME ONE Stop: 06/23/16 20:51 Cefazolin Sodium (Ancef) Confirm Administered Dose 2 gm .ROUTE .STK-MED ONE Stop: 06/23/16 19:45 Penicillin G Potassium 5 (millunits/ Sodium Chloride) 100 mls @ 55 mls/hr IV ONETIME ONE Stop: 06/22/16 22:04 Last Admin: 06/23/16 09:00 Dose: Not Given Penicillin G Potassium 2.5 (millunits/ Sodium Chloride) 100 mls @ 55 mls/hr IV Q4H [facility] Last Admin: 06/23/16 09:01 Dose: Not Given Penicillin G Potassium 5 (millunits/ Sodium Chloride) 100 mls @ 55 mls/hr IV ONETIME ONE Stop: 06/23/16 11:04 Methylergonovine Maleate (Methergine) Confirm Administered Dose 0.2 mg .ROUTE .STK-MED ONE Stop: 06/23/16 19:38 Methylergonovine Maleate (Methergine) 0.2 mg IM ONETIME ONE Stop: 06/23/16 20:51 Misoprostol (Cytotec) 25 mcg VAG ONETIME ONE Stop: 06/22/16 21:30 Last Admin: 06/22/16 21:51 Dose: 25 mcg Misoprostol (Cytotec) Confirm Administered Dose 25 mcg .ROUTE .STK-MED ONE Stop: 06/23/16 03:04 Last Admin: 06/23/16 03:24 Dose: 25 mcg Misoprostol (Cytotec) Confirm Administered Dose 600 mcg .ROUTE .STK-MED ONE Stop: 06/23/16 19:30 Misoprostol (Cytotec) 600 mcg PO NOW STA Stop: 06/23/16 20:51 - Problem List & Annotations (1) Gestational hypertension SNOMED Code(s): 68377425 Code(s): O13.9 - GESTATIONAL HTN W/O SIGNIFICANT PROTEINURIA, UNSP TRIMESTER Status: Acute Current Visit: Yes Qualifiers: (2) Dichorionic diamniotic twin gestation SNOMED Code(s): 99780686 Code(s): O30.049 - TWIN , DICHORIONIC/DIAMNIOTIC, UNSP TRIMESTER Status: Acute Current Visit: Yes Qualifiers: (3) 37 weeks gestation of SNOMED Code(s): 70207012 Code(s): Z3A.37 - 37 WEEKS GESTATION OF Status: Acute Current Visit: Yes (4) GBS (group B Streptococcus carrier), +RV culture, currently SNOMED Code(s): 49141960, 513913744 Code(s): O99.820 - STREPTOCOCCUS B CARRIER STATE COMPLICATING Status: Acute Current Visit: Yes (5) choroid plexus cysts affecting antepartum care of mother SNOMED Code(s): 5127163, 758183271 Code(s): O35.8XX0 - MATERNAL CARE FOR OTH ABNORMALITY AND DAMAGE, UNSP Status: Acute Current Visit: Yes (6) Twin delivered vaginally SNOMED Code(s): 536314975 Code(s): O30.009 - TWIN , UNSP NUM PLCNTA & AMNIO SACS, UNSP TRIMESTER Status: Acute Current Visit: Yes (7) hemorrhage SNOMED Code(s): 65060980 Code(s): O72.1 - OTHER IMMEDIATE HEMORRHAGE Status: Acute Current Visit: Yes Qualifiers: hemorrhage type: other immediate Qualified Code(s): O72.1 - Other immediate hemorrhage - Problem List Review Problem List Initiated/Reviewed/Updated: Yes - My Orders Last 24 Hours: My Active Orders 06/22/16 20:01 Resuscitation Status Routine 06/22/16 20:02 Activity as Tolerated [RC] PFP Communication Order [RC] ASDIRECTED Communication Order [RC] ASDIRECTED Monitoring [RC] INTERMITTENT Notify Provider [RC] ASDIRECTED Notify Provider [RC] PFP Notify Provider [RC] PRN Vital Signs [RC] PER UNIT ROUTINE Electronic Heart Tones Ext w TOCO [WOMSER] Routine Electronic Heart Tones Internal [WOMSER] Per Unit Routine Peripheral IV Insertion Adult [OM.PC] Routine 06/22/16 20:12 Acetaminophen [Tylenol] 650 mg PO Q4H PRN Nalbuphine [Nubain] 10 mg IVPUSH Q2H PRN Ondansetron [Zofran] 4 mg IVPUSH Q4H PRN Sodium Chloride 0.9% [Saline Flush] 10 ml FLUSH ASDIRECTED PRN 06/22/16 20:13 Patient Status [ADT] Routine Peripheral IV Care [RC] . DIRECTED 06/22/16 20:15 Lactated Ringers [Ringers, Lactated] 1,000 ml IV ASDIRECTED Oxytocin/Lactated Ringers [Pitocin in LR 10 Units/1,000 ML] 10 unit in 1,000 ml IV TITRATE 06/23/16 07:30 Oxytocin/Lactated Ringers [Pitocin in LR 10 Units/1,000 ML] 10 unit in 1,000 ml IV TITRATE 06/23/16 09:00 Ampicillin 2 gm Sodium Chloride 0.9% [Normal Saline] 100 ml IV NOW 06/23/16 13:00 Ampicillin 1 gm Sodium Chloride 0.9% [Normal Saline] 100 ml IV Q4H 06/23/16 20:05 RED BLOOD CELLS APH1 LR [BBK] Stat RED BLOOD CELLS APH1 LR [BBK] Stat RED BLOOD CELLS LP [BBK] Routine TYPE AND SCREEN [BBK] Stat 06/23/16 20:51 ceFAZolin [Ancef] 2 gm Premix Bag 1 bag IV ONETIME 06/23/16 20:52 Transfuse Red Blood Cells [COMM] Routine 06/23/16 20:53 Patient Status Manage Transfer [TRANSFER] Routine - Assessment Assessment:: 31 y/o G1 now P1002 PPD#0 from at 37 0/7 wks in a di-di twin after IOL for gestational HTN - Plan Plan:: Severe hemorrhage * Ancef 1 gram q 8 hrs x 24 hours for multiple explorations of uterus * Cytotec 400 mcg q 6 hours x 24 hours * Will be moved to ICU overnight for close monitoring of vitals, bleeding, and strict I&O's * CBC, PTT, PT at 0500 * Encourage breast feeding when tolerates * Routine cares Gestational HTN * BP check in 1-2 weeks after discharge
[2016-06-23] MEDS ORDERED: Meperidine PF 50 MG/ML Syringe ONE (21:09)
[2016-06-23] MEDS ORDERED: Ondansetron 4 MG/2 ML SDV ONE (21:11)
[2016-06-23] MEDS ORDERED: Sodium Chloride 0.9% 1,000 ML ONE ×2 (21:21→21:22)
[2016-06-23] MEDS ORDERED: Lactated Ringers 1,000 ML ONE ×2 (21:21)
[2016-06-23] MEDS ORDERED: Benzocaine/Menthol 20%-0.5% Spray 56 GM Canister TOP PRN (21:37)
[2016-06-23] MEDS ORDERED: Lanolin 100% Cream 7 GM Tube TOP PRN (21:37)
[2016-06-23] MEDS ORDERED: Bupivacaine 0.25% 10 ML SDV ONE (23:00)
[2016-06-23] MEDS: Dextrose 5%-0.45% NaCl 1,000 ML IV SCH (23:38)
[2016-06-24] MEDS: Ibuprofen 600 MG Tab PO PRN ×2 (00:31→11:38)
--- NOTE | 2016-06-24 02:11 | PCM.PNPP ---
- General Info Date of Service: 06/24/16 Functional Status: Reports: other (With continued pain worse in left leg but whole body sore) - Review of Systems General: Reports: Weakness, Fatigue HEENT: Reports: no symptoms Pulmonary: Reports: no symptoms. Denies: shortness of breath Cardiovascular: Reports: No Symptoms Gastrointestinal: Reports: No symptoms Genitourinary: Reports: no symptoms Musculoskeletal: Reports: no symptoms Skin: Reports: no symptoms Neurological: Reports: No Symptoms Psychiatric: Reports: no symptoms - General Info Date of Service: 06/24/16 - Patient Data Vital Signs - most recent: Last Vital Signs Temp 37.0 C 06/24/16 00:00 Pulse 93 06/23/16 15:23 Resp 18 06/24/16 01:00 BP 151/73 H 06/24/16 01:00 Pulse Ox 97 06/24/16 01:00 Weight - most recent: 68.039 kg I&O - last 24 hours: Intake & Output 06/23/16 06/23/16 06/24/16 14:59 22:59 06:59 Intake Total 1610 0 Output Total 125 75 Balance 1485 -75 Lab Results - last 24 hrs: Laboratory Results - last 24 hr 06/23/16 06/23/16 06/23/16 Range/Units 20:05 20:05 20:05 WBC 10.39 H (3.98-10.04) K/mm3 RBC 2.98 L (3.98-5.22) M/mm3 Hgb 9.7 L (11.2-15.7) gm/L Hct 28.6 L (34.1-44.9) % MCV 96.0 H (79.4-94.8) fl MCH 32.6 H (25.6-32.2) pg MCHC 33.9 (32.2-35.5) g/dl RDW Std Deviation 42.9 (36.4-46.3) fL Plt Count 151 L (182-369) K/mm3 MPV 11.5 (9.4-12.3) fl PT (8.0-13.0) SECONDS INR APTT (22-36) SECONDS Blood Type A POSITIVE Gel Antibody Screen Negative Crossmatch See Detail See Detail 06/23/16 Range/Units 20:50 WBC (3.98-10.04) K/mm3 RBC (3.98-5.22) M/mm3 Hgb (11.2-15.7) gm/L Hct (34.1-44.9) % MCV (79.4-94.8) fl MCH (25.6-32.2) pg MCHC (32.2-35.5) g/dl RDW Std Deviation (36.4-46.3) fL Plt Count (182-369) K/mm3 MPV (9.4-12.3) fl PT 10.4 (8.0-13.0) SECONDS INR 0.96 APTT 33 (22-36) SECONDS Blood Type Gel Antibody Screen Crossmatch Med Orders - Current: Current Medications Acetaminophen (Tylenol) 650 mg PO Q4H PRN PRN Reason: mild pain or fever Benzocaine/Menthol (Dermoplast Pain Relief [place]) 0 gm TOP ASDIRECTED PRN PRN Reason: Perineal Comfort Measure Docusate Sodium (Colace) 100 mg PO BID PRN PRN Reason: Constipation Emollient Ointment (Lansinoh Hpa) 0 gm TOP ASDIRECTED PRN PRN Reason: Sore Nipples Cefazolin Sodium/Dextrose 1 gm (/ Premix) 50 mls @ 100 mls/hr IV Q8H ASIM Stop: 06/24/16 20:29 Dextrose/Sodium Chloride (Dextrose 5%-1/2 Ns) 1,000 mls @ 150 mls/hr IV ASDIRECTED ASIM Last Admin: 06/23/16 23:38 Dose: 150 mls/hr Ibuprofen (Motrin) 600 mg PO Q4H PRN PRN Reason: Mild pain or fever Last Admin: 06/24/16 00:31 Dose: 600 mg Misoprostol (Cytotec) 400 mcg PO Q6H ASIM Stop: 06/24/16 14:01 Witch Carly (Tucks) 1 pad TOP ASDIRECTED PRN PRN Reason: Hemorrhoid pain Discontinued Medications Acetaminophen (Tylenol) 650 mg PO Q4H PRN PRN Reason: Pain (Mild 1-3) and fever Carboprost Tromethamine (Hemabate Ds) Confirm Administered Dose 250 mcg .ROUTE .STK-MED ONE Stop: 06/23/16 19:31 Carboprost Tromethamine (Hemabate Ds) 250 mcg IM ONETIME ONE Stop: 06/23/16 20:51 Last Admin: 06/23/16 21:39 Dose: 250 mcg Cefazolin Sodium (Ancef) 2,000 mg IVPUSH ONETIME ONE Stop: 06/23/16 19:51 Last Admin: 06/23/16 19:56 Dose: 2,000 mg Diphenhydramine HCl (Benadryl) 25 mg IVPUSH Q6H PRN PRN Reason: Itching Ephedrine Sulfate (Ephedrine Sulfate) 5 mg IVPUSH ASDIRECTED PRN PRN Reason: HYPOTENTSION Fentanyl (Sublimaze) 100 mcg EPIDUR Q3H PRN PRN Reason: PAIN Last Admin: 06/23/16 15:11 Dose: 100 mcg Fentanyl/Bupivacaine HCl (Fentanyl/Bupivacaine/Ns 2 Mcg-0.125% 100 Ml) 100 ml EPIDUR ASDIRECTED ASIM Last Admin: 06/23/16 15:11 Dose: 100 ml Lactated Ringer's (Ringers, Lactated) 1,000 mls @ 40 mls/hr IV ASDIRECTED ASIM Last Admin: 06/23/16 21:58 Dose: 125 mls/hr Oxytocin/Lactated Ringer's (Pitocin In Lr 10 Units/1,000 Ml) 10 unit in 1,000 mls @ 500 mls/hr IV TITRATE ASIM PRN Reason: Protocol Last Admin: 06/23/16 19:58 Dose: 999 mls/hr, 999 mls/hr Penicillin G Potassium 5 (millunits/ Sodium Chloride) 100 mls @ 55 mls/hr IV ONETIME ONE Stop: 06/22/16 22:04 Last Admin: 06/23/16 09:00 Dose: Not Given Penicillin G Potassium 2.5 (millunits/ Sodium Chloride) 100 mls @ 55 mls/hr IV Q4H ASIM Last Admin: 06/23/16 09:01 Dose: Not Given Oxytocin/Lactated Ringer's (Pitocin In Lr 10 Units/1,000 Ml) 10 unit in 1,000 mls @ 12 mls/hr IV TITRATE ASIM; 2 MUNITS/MIN PRN Reason: Protocol Last Titration: 06/23/16 17:53 Dose: 5 munits/min, 30 mls/hr Penicillin G Potassium 5 (millunits/ Sodium Chloride) 100 mls @ 55 mls/hr IV ONETIME ONE Stop: 06/23/16 11:04 Ampicillin Sodium 2 gm/ Sodium (Chloride) 100 mls @ 200 mls/hr IV NOW [facility] Last Admin: 06/23/16 09:09 Dose: 200 mls/hr Ampicillin Sodium 1 gm/ Sodium (Chloride) 100 mls @ 200 mls/hr IV Q4H [facility] Last Admin: 06/23/16 21:56 Dose: Not Given Lactated Ringer's (Ringers, Lactated) Confirm Administered Dose 1,000 mls @ as directed .ROUTE .STK-MED ONE Stop: 06/23/16 21:22 Lactated Ringer's (Ringers, Lactated) Confirm Administered Dose 1,000 mls @ as directed .ROUTE .STK-MED ONE Stop: 06/23/16 21:22 Sodium Chloride (Normal Saline) Confirm Administered Dose 1,000 mls @ as directed .ROUTE .STK-MED ONE Stop: 06/23/16 21:22 Sodium Chloride (Normal Saline) Confirm Administered Dose 1,000 mls @ as directed .ROUTE .STK-MED ONE Stop: 06/23/16 21:23 Meperidine HCl (Demerol) Confirm Administered Dose 150 mg .ROUTE .STK-MED ONE Stop: 06/23/16 21:10 Methylergonovine Maleate (Methergine) Confirm Administered Dose 0.2 mg .ROUTE .STK-MED ONE Stop: 06/23/16 19:38 Methylergonovine Maleate (Methergine) 0.2 mg IM ONETIME ONE Stop: 06/23/16 20:51 Last Admin: 06/23/16 21:41 Dose: 0.2 mg Misoprostol (Cytotec) 25 mcg VAG ONETIME ONE Stop: 06/22/16 21:30 Last Admin: 06/22/16 21:51 Dose: 25 mcg Misoprostol (Cytotec) Confirm Administered Dose 25 mcg .ROUTE .STK-MED ONE Stop: 06/23/16 03:04 Last Admin: 06/23/16 03:24 Dose: 25 mcg Misoprostol (Cytotec) Confirm Administered Dose 600 mcg .ROUTE .STK-MED ONE Stop: 06/23/16 19:30 Misoprostol (Cytotec) 600 mcg PO NOW STA Stop: 06/23/16 20:51 Last Admin: 06/23/16 19:39 Dose: 600 mcg Nalbuphine HCl (Nubain) 10 mg IVPUSH Q2H PRN PRN Reason: Pain (moderate 4-6) Last Admin: 06/23/16 13:21 Dose: 10 mg Ondansetron HCl (Zofran) 4 mg IVPUSH Q4H PRN PRN Reason: Nausea/Vomiting Ondansetron HCl (Zofran) Confirm Administered Dose 4 mg .ROUTE .STK-MED ONE Stop: 06/23/16 21:12 Sodium Chloride (Saline Flush) 10 ml FLUSH ASDIRECTED PRN PRN Reason: Keep Vein Open - Interaction Disposition, : to Nursery Infant Interaction: Unable to Hold Infant at this Time Feeding: Attempted ; Nursed Fair/Poor Support Person: - Recovery Exam Fundal Tone: Firm Fundal Level: At Umbilicus Fundal Placement: Midline Lochia Amount: None Perineum Description: Intact, Minimal Bruising/Swelling, Edematous Urinary Elimination: Indwelling Catheter - Exam General: alert, oriented HEENT: Pupils equal Neck: supple Lungs: Clear to auscultation, Normal respiratory effort Cardiovascular: Regular Rate, Regular Rhythm Abdomen: bowel sounds present, soft, no tenderness, no distension Extremities: no calf tenderness, edema Skin: warm, dry, intact Neurological: no new focal deficit Psy/Mental Status: alert, normal affect, normal mood - Problem List & Annotations (1) Acute blood loss anemia SNOMED Code(s): 426216942 Code(s): D62 - ACUTE POSTHEMORRHAGIC ANEMIA Status: Acute Current Visit: Yes Annotation/Comment:: AM cbc pending. Bleeding slowed now. (2) Gestational hypertension SNOMED Code(s): 90446060 Code(s): O13.9 - GESTATIONAL HTN W/O SIGNIFICANT PROTEINURIA, UNSP TRIMESTER Status: Acute Current Visit: Yes Qualifiers: Annotation/Comment:: Observe I/O closely. Significant fluid overload. Lungs clear. (3) hemorrhage SNOMED Code(s): 40269764 Code(s): O72.1 - OTHER IMMEDIATE HEMORRHAGE Status: Acute Current Visit: Yes Qualifiers: hemorrhage type: other immediate Qualified Code(s): O72.1 - Other immediate hemorrhage Annotation/Comment:: Received 8L crystaloid, 3u pRBC and antibiotics in OR. CBC pending Significant edema (4) Twin delivered vaginally SNOMED Code(s): 149574569 Code(s): O30.009 - TWIN , UNSP NUM PLCNTA & AMNIO SACS, UNSP TRIMESTER Status: Acute Current Visit: Yes - Problem List Review Problem List Initiated/Reviewed/Updated: Yes - My Orders Last 24 Hours: My Active Orders 06/23/16 21:45 Dextrose 5%-0.45% NaCl [Dextrose 5%-1/2 NS] 1,000 ml IV ASDIRECTED - Assessment Assessment:: 31 y/o G1 now P1002 PPD#0 from at 37 0/7 wks in a di-di twin after IOL for gestational HTN - Plan Plan:: Severe hemorrhage * Ancef 1 gram q 8 hrs x 24 hours for multiple explorations of uterus * Cytotec 400 mcg q 6 hours x 24 hours * Will be moved to ICU overnight for close monitoring of vitals, bleeding, and strict I&O's * CBC, PTT, PT at 0500 * CMP * Encourage breast feeding when tolerates * Routine cares Gestational HTN * BP check in 1-2 weeks after discharge
[2016-06-24] MEDS: Acetaminophen 325 MG Tab PO PRN ×2 (02:41→08:55)
[2016-06-24] MEDS: Misoprostol 200 MCG Tab PO SCH ×3 (02:41→15:22)
[2016-06-24] MEDS: ceFAZolin 1 GM in Premix Bag 1 BAG IV SCH ×3 (03:03→20:00)
[2016-06-24] MEDS ORDERED: oxyCODONE 5 MG Tab PO ONE ×2 (03:12→03:15)
[2016-06-24] MEDS: Dextrose 5%-0.45% NaCl 1,000 ML IV SCH (05:56)
--- NOTE | 2016-06-24 07:28 | PCM.SN ---
- Free Text/Narrative Note: S: Patient resting comfortable. Slept well since about 5 am. Reasonably restless sleep prior and some pain. No complaints other than shaking and generalized pain through that time. sleeping near her in ICU. Babies to nursery. O: Afebrile. ICU vitals and I&O reviewed. Stable. No tachycardia. BP intermittently as high as 148/98 but now 102/79 Fundus firm. Minimal to no flow. SCDs on. 3+ edema. No redness. A: Doing well. Stable. P: Transfer to floor
[2016-06-24] MEDS ORDERED: LORazepam 2 MG/ML MDV IVPUSH ONE (09:04)
[2016-06-24] MEDS: Docusate Sodium 100 MG Cap PO PRN (11:38)
[2016-06-24] MEDS: Witch Hazel Medicated Pads 100/Jar TOP PRN (11:39)
[2016-06-24] MEDS ORDERED: Meperidine PF 50 MG/ML Syringe IM ONE (15:53)
[2016-06-24] MEDS ORDERED: Meperidine PF 50 MG/ML Syringe IV ONE (16:10)
[2016-06-24] MEDS: Acetaminophen/oxyCODONE 325-5 MG Tab PO PRN (22:28)
[2016-06-25] MEDS: Acetaminophen/oxyCODONE 325-5 MG Tab PO PRN ×3 (07:27→19:07)
--- NOTE | 2016-06-25 08:43 | PCM.PNPP ---
- General Info Date of Service: 06/25/16 Functional Status: Reports: pain controlled - Review of Systems General: Reports: No Symptoms HEENT: Reports: no symptoms Pulmonary: Reports: no symptoms Cardiovascular: Reports: No Symptoms Gastrointestinal: Reports: No symptoms Genitourinary: Reports: no symptoms Musculoskeletal: Reports: no symptoms Skin: Reports: no symptoms Neurological: Reports: No Symptoms Psychiatric: Reports: no symptoms - General Info Date of Service: 06/25/16 - Patient Data Vital Signs - most recent: Last Vital Signs Temp 36.4 C 06/25/16 04:00 Pulse 74 06/25/16 04:00 Resp 16 06/25/16 04:00 BP 126/80 06/25/16 04:00 Pulse Ox 96 06/25/16 04:00 Weight - most recent: 68.039 kg I&O - last 24 hours: Intake & Output 06/24/16 06/25/16 06/25/16 22:59 06:59 14:59 Intake Total 410 Output Total 2226 1650 Balance -1815 -1650 Lab Results - last 24 hrs: Laboratory Results - last 24 hr 06/23/16 06/24/16 06/24/16 Range/Units 20:05 11:45 11:45 WBC 13.30 H (3.98-10.04) K/mm3 RBC 2.97 L (3.98-5.22) M/mm3 Hgb 9.5 L (11.2-15.7) gm/L Hct 27.2 L (34.1-44.9) % MCV 91.6 (79.4-94.8) fl MCH 32.0 (25.6-32.2) pg MCHC 34.9 (32.2-35.5) g/dl RDW Std Deviation 44.6 (36.4-46.3) fL Plt Count 137 L (182-369) K/mm3 MPV 11.8 (9.4-12.3) fl Neut % (Auto) (34.0-71.1) % Lymph % (Auto) (19.3-51.7) % [place] % (Auto) (4.7-12.5) % Eos % (Auto) (0.7-5.8) Baso % (Auto) (0.1-1.2) % Neut # (Auto) (1.56-6.13) K/mm3 Lymph # (Auto) (1.18-3.74) K/mm3 [place] # (Auto) (0.24-0.36) K/mm3 Eos # (Auto) (0.04-0.36) K/mm3 Baso # (Auto) (0.01-0.08) K/mm3 Sodium 137 (136-145) mEq/L Potassium 4.1 (3.5-5.1) mEq/L Chloride 106 (98-107) mEq/L Carbon Dioxide 22 (21-32) mEq/L Anion Gap 13.1 (5-15) BUN 10 (7-18) mg/dL Creatinine 1.0 (0.55-1.02) mg/dL Est Cr Clr Drug Dosing 77.81 mL/min Estimated GFR (MDRD) > 60 (>60) mL/min BUN/Creatinine Ratio 10.0 L (14-18) Glucose 139 H (74-106) mg/dL Calcium 7.5 L (8.5-10.1) mg/dL Total Bilirubin 0.3 (0.2-1.0) mg/dL AST 41 H (15-37) U/L ALT 13 L (14-59) U/L Alkaline Phosphatase 128 H (46-116) U/L Total Protein 3.8 L (6.4-8.2) g/dl Albumin 1.5 L (3.4-5.0) g/dl Globulin 2.3 gm/dL Albumin/Globulin Ratio 0.7 L (1-2) Blood Type A POSITIVE Gel Antibody Screen Negative Crossmatch See Detail 06/25/16 06/25/16 Range/Units 03:55 03:55 WBC 10.48 H (3.98-10.04) K/mm3 RBC 2.58 L (3.98-5.22) M/mm3 Hgb 8.3 L (11.2-15.7) gm/L Hct 24.0 L (34.1-44.9) % MCV 93.0 (79.4-94.8) fl MCH 32.2 (25.6-32.2) pg MCHC 34.6 (32.2-35.5) g/dl RDW Std Deviation 45.8 (36.4-46.3) fL Plt Count 129 L (182-369) K/mm3 MPV 10.8 (9.4-12.3) fl Neut % (Auto) 69.6 (34.0-71.1) % Lymph % (Auto) 21.3 (19.3-51.7) % [place] % (Auto) 7.0 (4.7-12.5) % Eos % (Auto) 1.2 (0.7-5.8) Baso % (Auto) 0.3 (0.1-1.2) % Neut # (Auto) 7.30 H (1.56-6.13) K/mm3 Lymph # (Auto) 2.23 (1.18-3.74) K/mm3 [place] # (Auto) 0.73 H (0.24-0.36) K/mm3 Eos # (Auto) 0.13 (0.04-0.36) K/mm3 Baso # (Auto) 0.03 (0.01-0.08) K/mm3 Sodium 140 (136-145) mEq/L Potassium 4.0 (3.5-5.1) mEq/L Chloride 108 H (98-107) mEq/L Carbon Dioxide 27 (21-32) mEq/L Anion Gap 9.0 (5-15) BUN 10 (7-18) mg/dL Creatinine 0.8 (0.55-1.02) mg/dL Est Cr Clr Drug Dosing 97.27 mL/min Estimated GFR (MDRD) > 60 (>60) mL/min BUN/Creatinine Ratio 12.5 L (14-18) Glucose 106 (74-106) mg/dL Calcium 8.0 L (8.5-10.1) mg/dL Total Bilirubin 0.2 (0.2-1.0) mg/dL AST 38 H (15-37) U/L ALT 14 (14-59) U/L Alkaline Phosphatase 118 H (46-116) U/L Total Protein 4.2 L (6.4-8.2) g/dl Albumin 1.6 L (3.4-5.0) g/dl Globulin 2.6 gm/dL Albumin/Globulin Ratio 0.6 L (1-2) Blood Type Gel Antibody Screen Crossmatch Med Orders - Current: Current Medications Acetaminophen (Tylenol) 650 mg PO Q4H PRN PRN Reason: mild pain or fever Last Admin: 06/24/16 08:55 Dose: 650 mg Benzocaine/Menthol (Dermoplast Pain Relief [place]) 0 gm TOP ASDIRECTED PRN PRN Reason: Perineal Comfort Measure Last Admin: 06/24/16 11:39 Dose: 1 can Docusate Sodium (Colace) 100 mg PO BID PRN PRN Reason: Constipation Last Admin: 06/24/16 11:38 Dose: 100 mg Emollient Ointment (Lansinoh Hpa) 0 gm TOP ASDIRECTED PRN PRN Reason: Sore Nipples Ibuprofen (Motrin) 600 mg PO Q4H PRN PRN Reason: Mild pain or fever Last Admin: 06/24/16 11:38 Dose: 600 mg Oxycodone/Acetaminophen (Percocet 325-5 Mg) 2 tab PO Q6H PRN PRN Reason: Pain Last Admin: 06/25/16 07:27 Dose: 2 tab Witch Carly (Tucks) 1 pad TOP ASDIRECTED PRN PRN Reason: Hemorrhoid pain Last Admin: 06/24/16 11:39 Dose: 1 can Discontinued Medications Acetaminophen (Tylenol) 650 mg PO Q4H PRN PRN Reason: Pain (Mild 1-3) and fever Carboprost Tromethamine (Hemabate Ds) Confirm Administered Dose 250 mcg .ROUTE .STK-MED ONE Stop: 06/23/16 19:31 Carboprost Tromethamine (Hemabate Ds) 250 mcg IM ONETIME ONE Stop: 06/23/16 20:51 Last Admin: 06/23/16 21:39 Dose: 250 mcg Cefazolin Sodium (Ancef) 2,000 mg IVPUSH ONETIME ONE Stop: 06/23/16 19:51 Last Admin: 06/23/16 19:56 Dose: 2,000 mg Diphenhydramine HCl (Benadryl) 25 mg IVPUSH Q6H PRN PRN Reason: Itching Ephedrine Sulfate (Ephedrine Sulfate) 5 mg IVPUSH ASDIRECTED PRN PRN Reason: HYPOTENTSION Fentanyl (Sublimaze) 100 mcg EPIDUR Q3H PRN PRN Reason: PAIN Last Admin: 06/23/16 15:11 Dose: 100 mcg Fentanyl/Bupivacaine HCl (Fentanyl/Bupivacaine/Ns 2 Mcg-0.125% 100 Ml) 100 ml EPIDUR ASDIRECTED ASIM Last Admin: 06/23/16 15:11 Dose: 100 ml Lactated Ringer's (Ringers, Lactated) 1,000 mls @ 40 mls/hr IV ASDIRECTED ASIM Last Admin: 06/23/16 21:58 Dose: 125 mls/hr Oxytocin/Lactated Ringer's (Pitocin In Lr 10 Units/1,000 Ml) 10 unit in 1,000 mls @ 500 mls/hr IV TITRATE ASIM PRN Reason: Protocol Last Admin: 06/23/16 19:58 Dose: 999 mls/hr, 999 mls/hr Penicillin G Potassium 5 (millunits/ Sodium Chloride) 100 mls @ 55 mls/hr IV ONETIME ONE Stop: 06/22/16 22:04 Last Admin: 06/23/16 09:00 Dose: Not Given Penicillin G Potassium 2.5 (millunits/ Sodium Chloride) 100 mls @ 55 mls/hr IV Q4H [facility] Last Admin: 06/23/16 09:01 Dose: Not Given Oxytocin/Lactated Ringer's (Pitocin In Lr 10 Units/1,000 Ml) 10 unit in 1,000 mls @ 12 mls/hr IV TITRATE ASIM; 2 MUNITS/MIN PRN Reason: Protocol Last Titration: 06/23/16 17:53 Dose: 5 munits/min, 30 mls/hr Penicillin G Potassium 5 (millunits/ Sodium Chloride) 100 mls @ 55 mls/hr IV ONETIME ONE Stop: 06/23/16 11:04 Ampicillin Sodium 2 gm/ Sodium (Chloride) 100 mls @ 200 mls/hr IV NOW [facility] Last Admin: 06/23/16 09:09 Dose: 200 mls/hr Ampicillin Sodium 1 gm/ Sodium (Chloride) 100 mls @ 200 mls/hr IV Q4H [facility] Last Admin: 06/23/16 21:56 Dose: Not Given Lactated Ringer's (Ringers, Lactated) Confirm Administered Dose 1,000 mls @ as directed .ROUTE .STK-MED ONE Stop: 06/23/16 21:22 Lactated Ringer's (Ringers, Lactated) Confirm Administered Dose 1,000 mls @ as directed .ROUTE .STK-MED ONE Stop: 06/23/16 21:22 Sodium Chloride (Normal Saline) Confirm Administered Dose 1,000 mls @ as directed .ROUTE .STK-MED ONE Stop: 06/23/16 21:22 Sodium Chloride (Normal Saline) Confirm Administered Dose 1,000 mls @ as directed .ROUTE .STK-MED ONE Stop: 06/23/16 21:23 Cefazolin Sodium/Dextrose 1 gm (/ Premix) 50 mls @ 100 mls/hr IV Q8H ASIM Stop: 06/24/16 20:29 Last Admin: 06/24/16 20:00 Dose: 100 mls/hr Dextrose/Sodium Chloride (Dextrose 5%-1/2 Ns) 1,000 mls @ 150 mls/hr IV ASDIRECTED [facility] Last Admin: 06/24/16 05:56 Dose: 150 mls/hr Lorazepam (Ativan) 1 mg IVPUSH ONETIME ONE Stop: 06/24/16 09:05 Last Admin: 06/24/16 09:24 Dose: 1 mg Meperidine HCl (Demerol) Confirm Administered Dose 150 mg .ROUTE .STK-MED ONE Stop: 06/23/16 21:10 Meperidine HCl (Demerol) 25 mg IV ONETIME ONE Stop: 06/24/16 16:11 Last Admin: 06/24/16 16:29 Dose: 25 mg Methylergonovine Maleate (Methergine) Confirm Administered Dose 0.2 mg .ROUTE .STK-MED ONE Stop: 06/23/16 19:38 Methylergonovine Maleate (Methergine) 0.2 mg IM ONETIME ONE Stop: 06/23/16 20:51 Last Admin: 06/23/16 21:41 Dose: 0.2 mg Misoprostol (Cytotec) 25 mcg VAG ONETIME ONE Stop: 06/22/16 21:30 Last Admin: 06/22/16 21:51 Dose: 25 mcg Misoprostol (Cytotec) Confirm Administered Dose 25 mcg .ROUTE .STK-MED ONE Stop: 06/23/16 03:04 Last Admin: 06/23/16 03:24 Dose: 25 mcg Misoprostol (Cytotec) Confirm Administered Dose 600 mcg .ROUTE .STK-MED ONE Stop: 06/23/16 19:30 Misoprostol (Cytotec) 600 mcg PO NOW STA Stop: 06/23/16 20:51 Last Admin: 06/23/16 19:39 Dose: 600 mcg Misoprostol (Cytotec) 400 mcg PO Q6H ASIM Stop: 06/24/16 14:01 Last Admin: 06/24/16 15:22 Dose: 400 mcg Nalbuphine HCl (Nubain) 10 mg IVPUSH Q2H PRN PRN Reason: Pain (moderate 4-6) Last Admin: 06/23/16 13:21 Dose: 10 mg Ondansetron HCl (Zofran) 4 mg IVPUSH Q4H PRN PRN Reason: Nausea/Vomiting Ondansetron HCl (Zofran) Confirm Administered Dose 4 mg .ROUTE .STK-MED ONE Stop: 06/23/16 21:12 Oxycodone HCl (Oxycodone) 5 mg PO ONETIME ONE Stop: 06/24/16 03:13 Last Admin: 06/24/16 03:21 Dose: 5 mg Oxycodone HCl (Oxycodone) 5 mg PO ONETIME ONE Stop: 06/24/16 03:16 Last Admin: 06/24/16 03:37 Dose: 5 mg Sodium Chloride (Saline Flush) 10 ml FLUSH ASDIRECTED PRN PRN Reason: Keep Vein Open - Infant Interaction Disposition, : to Nursery Interaction: Unable to Hold at this Time Infant Feeding: Attempted ; Nursed Fair/Poor Support Person: - Recovery Exam Fundal Tone: Firm Fundal Level: 1 Fingerbreadths Above Umbilicus Fundal Placement: Midline Lochia Amount: Scant Lochia Color: Rubra/Red Perineum Description: Edematous Episiotomy/Laceration: Approximated Bladder Status: Indwelling Catheter in Place Urinary Elimination: Indwelling Catheter - Exam General: alert, oriented HEENT: Pupils equal Neck: supple Lungs: Clear to auscultation, Normal respiratory effort Cardiovascular: Regular Rate, Regular Rhythm Abdomen: bowel sounds present, soft Extremities: no edema Skin: warm, dry, intact Wound/Incisions: healing well Neurological: no new focal deficit Psy/Mental Status: alert, normal affect, normal mood - Problem List & Annotations (1) Acute blood loss anemia SNOMED Code(s): 664221634 Code(s): D62 - ACUTE POSTHEMORRHAGIC ANEMIA Status: Acute Current Visit: Yes Annotation/Comment:: AM cbc pending. Bleeding slowed now. (2) Gestational hypertension SNOMED Code(s): 03666110 Code(s): O13.9 - GESTATIONAL HTN W/O SIGNIFICANT PROTEINURIA, UNSP TRIMESTER Status: Acute Current Visit: Yes Qualifiers: Annotation/Comment:: Observe I/O closely. Significant fluid overload. Lungs clear. (3) hemorrhage SNOMED Code(s): 52767034 Code(s): O72.1 - OTHER IMMEDIATE HEMORRHAGE Status: Acute Current Visit: Yes Qualifiers: hemorrhage type: other immediate Qualified Code(s): O72.1 - Other immediate hemorrhage Annotation/Comment:: Received 8L crystaloid, 3u pRBC and antibiotics in OR. CBC pending Significant edema (4) Twin delivered vaginally SNOMED Code(s): 728240635 Code(s): O30.009 - TWIN , UNSP NUM PLCNTA & AMNIO SACS, UNSP TRIMESTER Status: Acute Current Visit: Yes - Problem List Review Problem List Initiated/Reviewed/Updated: Yes - My Orders Last 24 Hours: My Active Orders 06/24/16 15:46 Acetaminophen/oxyCODONE [Percocet 325-5 MG] 2 tab PO Q6H PRN 06/24/16 16:00 Vital Signs [RC] Q4HR - Assessment Assessment:: 31 y/o G1 now P1002 PPD#2 from at 37 0/7 wks in a di-di twin after IOL for gestational HTN hemorrhage -bleeding after initial hemorrhage was scant to none -now with normal to light lochia -tolerating anemia extremely well - will reorder CBC for tomorrow unless increased flow today -remained afebrile cares -up and around well, ambulating -daley out - urine output has been fabulous - - twins, going reasonably well, supplementing some Gestational HTN -blood pressures good -willing to do her BP check 07-04-16 in [place] if that is more convenient for family and Dr. Zamora agrees Probable discharge tomorrow. - Plan Plan:: Severe hemorrhage * Ancef 1 gram q 8 hrs x 24 hours for multiple explorations of uterus * Cytotec 400 mcg q 6 hours x 24 hours * Will be moved to ICU overnight for close monitoring of vitals, bleeding, and strict I&O's * CBC, PTT, PT at 0500 * CMP * Encourage breast feeding when tolerates * Routine cares Gestational HTN * BP check in 1-2 weeks after discharge * * * hemorrhage -bleeding after initial hemorrhage was scant to none -now with normal to light lochia -tolerating anemia extremely well - will reorder CBC for tomorrow unless increased flow today -remained afebrile cares -up and around well, ambulating -daley out - urine output has been fabulous - - twins, going reasonably well, supplementing some Gestational HTN -blood pressures good -willing to do her BP check 4 in [place] if that is more convenient for family and Dr. Zamora agrees Probable discharge tomorrow.
[2016-06-25] MEDS: Docusate Sodium 100 MG Cap PO PRN (11:52)
[2016-06-25] MEDS: Ibuprofen 600 MG Tab PO PRN ×3 (11:52→23:32)
[2016-06-26] MEDS: Acetaminophen/oxyCODONE 325-5 MG Tab PO PRN ×3 (01:26→14:06)
[2016-06-26] MEDS: Docusate Sodium 100 MG Cap PO PRN (01:28)
[2016-06-26] MEDS: Witch Hazel Medicated Pads 100/Jar TOP PRN (04:58)
[2016-06-26] MEDS: Ibuprofen 600 MG Tab PO PRN ×2 (04:59→14:04)
--- NOTE | 2016-06-26 07:01 | PCM.DCSUM1 ---
Discharge Summary - Discharge Data Discharge Date: 06/26/16 Discharge Disposition: Home, Self-Care 01 Condition: Good - Discharge Diagnosis/Problem(s) (1) Gestational hypertension SNOMED Code(s): 61656516 ICD Code: O13.9 - GESTATIONAL HTN W/O SIGNIFICANT PROTEINURIA, UNSP TRIMESTER Status: Acute Problem Details: Observe I/O closely. Significant fluid overload. Lungs clear. Qualifiers: Trimester: third trimester Qualified Code(s): O13.3 - Gestational [ -induced] hypertension without significant proteinuria, third trimester (2) Dichorionic diamniotic twin gestation SNOMED Code(s): 30128392 ICD Code: O30.049 - TWIN , DICHORIONIC/DIAMNIOTIC, UNSP TRIMESTER Status: Acute Qualifiers: Trimester: third trimester Qualified Code(s): O30.043 - Twin , dichorionic/diamniotic, third trimester (3) 37 weeks gestation of SNOMED Code(s): 03274032 ICD Code: Z3A.37 - 37 WEEKS GESTATION OF Status: Acute (4) GBS (group B Streptococcus carrier), +RV culture, currently SNOMED Code(s): 03394209, 698640410 ICD Code: O99.820 - STREPTOCOCCUS B CARRIER STATE COMPLICATING Status: Acute (5) choroid plexus cysts affecting antepartum care of mother SNOMED Code(s): 9747859, 126641351 ICD Code: O35.8XX0 - MATERNAL CARE FOR OTH ABNORMALITY AND DAMAGE, UNSP Status: Acute (6) Twin delivered vaginally SNOMED Code(s): 174412259 ICD Code: O30.009 - TWIN , UNSP NUM PLCNTA & AMNIO SACS, UNSP TRIMESTER Status: Acute (7) hemorrhage SNOMED Code(s): 62412555 ICD Code: O72.1 - OTHER IMMEDIATE HEMORRHAGE Status: Acute Qualifiers: hemorrhage type: other immediate Qualified Code(s): O72.1 - Other immediate hemorrhage - Patient Summary/Data Complications: None Consults: None Recommended Follow-up Testing/Procedures: Follow up in 1-2 weeks for BP check and in 6 weeks for check Hospital Course: 31 y/o admitted at 36 6/7 wks to start IOL for gestational HTN. This was done with cytotec, pitocin, and eventual AROM. She progressed well to complete dilation and was able to achieve a vaginal delivery of both twins. At 30 minutes post delivery of Baby B the placentas had still not delivered and EBL was already 500 cc. Manual exploration done. Patient with significant hemorrhage of 2.5L requiring 3 units PRBC's and several uterotonic agents. See delivery note. Immediately she went to ICU for close monitoring, but was able to be moved out of this unit at ~ 12 hours post delivery. She otherwise did well and remained stable. She was fit for discharge by PPD#3 - Patient Instructions Diet: Regular Diet as Tolerated Activity: As Tolerated Driving: May Drive Today Showering/Bathing: May Shower Showering/Bathing, Other: May Bathe Notify Provider of: Fever, Increased Pain, Swelling and Redness, Drainage, Nausea and/or Vomiting - Discharge Plan Home Medications: Home Meds Plexus 1 tab PO DAILY 12/04/15 [History] Ibuprofen [IJD: Ibuprofen] 600 mg PO Q4H PRN #0 tablet 06/25/16 [Rx] Patient Handouts: Vaginal Delivery, Care After Referrals: Rhonda Zamora MD [Primary Care Provider] - (2 weeks for BP check, or in [place] 6 weeks for check ) - Discharge Summary/Plan Comment DC Time >30 min.: No - Patient Data Vitals - Most Recent: Last Vital Signs Temp 36.8 C 06/26/16 05:48 Pulse 66 06/26/16 05:48 Resp 16 06/26/16 05:48 BP 125/75 06/26/16 04:00 Pulse Ox 96 06/26/16 05:48 Weight - Most Recent: 68.039 kg I&O - Last 24 hours: Intake & Output 06/25/16 06/26/16 06/26/16 22:59 06:59 14:59 Output Total 2100 1200 Balance -2100 -1200 Med Orders - Current: Current Medications Acetaminophen (Tylenol) 650 mg PO Q4H PRN PRN Reason: mild pain or fever Last Admin: 06/24/16 08:55 Dose: 650 mg Benzocaine/Menthol (Dermoplast Pain Relief [place]) 0 gm TOP ASDIRECTED PRN PRN Reason: Perineal Comfort Measure Last Admin: 06/24/16 11:39 Dose: 1 can Docusate Sodium (Colace) 100 mg PO BID PRN PRN Reason: Constipation Last Admin: 06/26/16 01:28 Dose: 100 mg Emollient Ointment (Lansinoh Hpa) 0 gm TOP ASDIRECTED PRN PRN Reason: Sore Nipples Ibuprofen (Motrin) 600 mg PO Q4H PRN PRN Reason: Mild pain or fever Last Admin: 06/26/16 04:59 Dose: 600 mg Oxycodone/Acetaminophen (Percocet 325-5 Mg) 2 tab PO Q6H PRN PRN Reason: Pain Last Admin: 06/26/16 01:26 Dose: 2 tab Witch Carly (Tucks) 1 pad TOP ASDIRECTED PRN PRN Reason: Hemorrhoid pain Last Admin: 06/26/16 04:58 Dose: 1 can Discontinued Medications Acetaminophen (Tylenol) 650 mg PO Q4H PRN PRN Reason: Pain (Mild 1-3) and fever Carboprost Tromethamine (Hemabate Ds) Confirm Administered Dose 250 mcg .ROUTE .STK-MED ONE Stop: 06/23/16 19:31 Carboprost Tromethamine (Hemabate Ds) 250 mcg IM ONETIME ONE Stop: 06/23/16 20:51 Last Admin: 06/23/16 21:39 Dose: 250 mcg Cefazolin Sodium (Ancef) 2,000 mg IVPUSH ONETIME ONE Stop: 06/23/16 19:51 Last Admin: 06/23/16 19:56 Dose: 2,000 mg Diphenhydramine HCl (Benadryl) 25 mg IVPUSH Q6H PRN PRN Reason: Itching Ephedrine Sulfate (Ephedrine Sulfate) 5 mg IVPUSH ASDIRECTED PRN PRN Reason: HYPOTENTSION Fentanyl (Sublimaze) 100 mcg EPIDUR Q3H PRN PRN Reason: PAIN Last Admin: 06/23/16 15:11 Dose: 100 mcg Fentanyl/Bupivacaine HCl (Fentanyl/Bupivacaine/Ns 2 Mcg-0.125% 100 Ml) 100 ml EPIDUR ASDIRECTED [facility] Last Admin: 06/23/16 15:11 Dose: 100 ml Lactated Ringer's (Ringers, Lactated) 1,000 mls @ 40 mls/hr IV ASDIRECTED [facility] Last Admin: 06/23/16 21:58 Dose: 125 mls/hr Oxytocin/Lactated Ringer's (Pitocin In Lr 10 Units/1,000 Ml) 10 unit in 1,000 mls @ 500 mls/hr IV TITRATE ASIM PRN Reason: Protocol Last Admin: 06/23/16 19:58 Dose: 999 mls/hr, 999 mls/hr Penicillin G Potassium 5 (millunits/ Sodium Chloride) 100 mls @ 55 mls/hr IV ONETIME ONE Stop: 06/22/16 22:04 Last Admin: 06/23/16 09:00 Dose: Not Given Penicillin G Potassium 2.5 (millunits/ Sodium Chloride) 100 mls @ 55 mls/hr IV Q4H ASIM Last Admin: 06/23/16 09:01 Dose: Not Given Oxytocin/Lactated Ringer's (Pitocin In Lr 10 Units/1,000 Ml) 10 unit in 1,000 mls @ 12 mls/hr IV TITRATE ASIM; 2 MUNITS/MIN PRN Reason: Protocol Last Titration: 06/23/16 17:53 Dose: 5 munits/min, 30 mls/hr Penicillin G Potassium 5 (millunits/ Sodium Chloride) 100 mls @ 55 mls/hr IV ONETIME ONE Stop: 06/23/16 11:04 Ampicillin Sodium 2 gm/ Sodium (Chloride) 100 mls @ 200 mls/hr IV NOW ASIM Last Admin: 06/23/16 09:09 Dose: 200 mls/hr Ampicillin Sodium 1 gm/ Sodium (Chloride) 100 mls @ 200 mls/hr IV Q4H ASIM Last Admin: 06/23/16 21:56 Dose: Not Given Lactated Ringer's (Ringers, Lactated) Confirm Administered Dose 1,000 mls @ as directed .ROUTE .STK-MED ONE Stop: 06/23/16 21:22 Lactated Ringer's (Ringers, Lactated) Confirm Administered Dose 1,000 mls @ as directed .ROUTE .STK-MED ONE Stop: 06/23/16 21:22 Sodium Chloride (Normal Saline) Confirm Administered Dose 1,000 mls @ as directed .ROUTE .STK-MED ONE Stop: 06/23/16 21:22 Sodium Chloride (Normal Saline) Confirm Administered Dose 1,000 mls @ as directed .ROUTE .STK-MED ONE Stop: 06/23/16 21:23 Cefazolin Sodium/Dextrose 1 gm (/ Premix) 50 mls @ 100 mls/hr IV Q8H ASIM Stop: 06/24/16 20:29 Last Admin: 06/24/16 20:00 Dose: 100 mls/hr Dextrose/Sodium Chloride (Dextrose 5%-1/2 Ns) 1,000 mls @ 150 mls/hr IV ASDIRECTED ASIM Last Admin: 06/24/16 05:56 Dose: 150 mls/hr Lorazepam (Ativan) 1 mg IVPUSH ONETIME ONE Stop: 06/24/16 09:05 Last Admin: 06/24/16 09:24 Dose: 1 mg Meperidine HCl (Demerol) Confirm Administered Dose 150 mg .ROUTE .STK-MED ONE Stop: 06/23/16 21:10 Meperidine HCl (Demerol) 25 mg IV ONETIME ONE Stop: 06/24/16 16:11 Last Admin: 06/24/16 16:29 Dose: 25 mg Methylergonovine Maleate (Methergine) Confirm Administered Dose 0.2 mg .ROUTE .STK-MED ONE Stop: 06/23/16 19:38 Methylergonovine Maleate (Methergine) 0.2 mg IM ONETIME ONE Stop: 06/23/16 20:51 Last Admin: 06/23/16 21:41 Dose: 0.2 mg Misoprostol (Cytotec) 25 mcg VAG ONETIME ONE Stop: 06/22/16 21:30 Last Admin: 06/22/16 21:51 Dose: 25 mcg Misoprostol (Cytotec) Confirm Administered Dose 25 mcg .ROUTE .STK-MED ONE Stop: 06/23/16 03:04 Last Admin: 06/23/16 03:24 Dose: 25 mcg Misoprostol (Cytotec) Confirm Administered Dose 600 mcg .ROUTE .STK-MED ONE Stop: 06/23/16 19:30 Misoprostol (Cytotec) 600 mcg PO NOW STA Stop: 06/23/16 20:51 Last Admin: 06/23/16 19:39 Dose: 600 mcg Misoprostol (Cytotec) 400 mcg PO Q6H ASIM Stop: 06/24/16 14:01 Last Admin: 06/24/16 15:22 Dose: 400 mcg Nalbuphine HCl (Nubain) 10 mg IVPUSH Q2H PRN PRN Reason: Pain (moderate 4-6) Last Admin: 06/23/16 13:21 Dose: 10 mg Ondansetron HCl (Zofran) 4 mg IVPUSH Q4H PRN PRN Reason: Nausea/Vomiting Ondansetron HCl (Zofran) Confirm Administered Dose 4 mg .ROUTE .STK-MED ONE Stop: 06/23/16 21:12 Oxycodone HCl (Oxycodone) 5 mg PO ONETIME ONE Stop: 06/24/16 03:13 Last Admin: 06/24/16 03:21 Dose: 5 mg Oxycodone HCl (Oxycodone) 5 mg PO ONETIME ONE Stop: 06/24/16 03:16 Last Admin: 06/24/16 03:37 Dose: 5 mg Sodium Chloride (Saline Flush) 10 ml FLUSH ASDIRECTED PRN PRN Reason: Keep Vein Open *Q Meaningful Use (DIS) - VTE *Q VTE Criteria *Q: - Stroke *Q Stroke Criteria *Q: - AMI *Q AMI Criteria *Q:
[2016-06-26 18:32] VITALS: BP 132/74
== END 2016-06-26 17:30 | disposition home or self-care (01) | DRG 560 ==
LOC: JD.OB 19:17 → INTOOBSV 06-23 19:04 → JD.OB 06-23 19:04 → OBSVTOIN 06-23 19:04 → JD.OB 06-23 20:53 → JD.ICU 06-23 20:53 → JD.OB 06-24 10:35 → JD.ICU 06-24 10:35 → UNDODISIN 06-26 17:30
PROVIDERS: ADMIT Obstetrics & Gynecology; ATTEND Obstetrics & Gynecology
PROC: 10E0XZZ Delivery of Products of Conception, External Approach (ICD-10-PCS; principal; 2016-06-23)
PROC: 3E033VJ Introduction of Other Hormone into Peripheral Vein, Percutaneous Approach (ICD-10-PCS; 2016-06-23)
PROC: 10907ZC Drainage of Amniotic Fluid, Therapeutic from Products of Conception, Via Natural or Artificial Opening (ICD-10-PCS; 2016-06-23)
PROC: 0KQM0ZZ Repair Perineum Muscle, Open Approach (ICD-10-PCS; 2016-06-23)
PROC: 00HU33Z Insertion of Infusion Device into Spinal Canal, Percutaneous Approach (ICD-10-PCS; 2016-06-23)
PROC: 3E0R3CZ (ICD-10-PCS; 2016-06-23)
DX: O13.4 Gestational [pregnancy-induced] hypertension without significant proteinuria, complicating childbirth (principal); O30.043 Twin pregnancy, dichorionic/diamniotic, third trimester; O99.820 Streptococcus B carrier state complicating pregnancy; O70.1 Second degree perineal laceration during delivery; O72.1 Other immediate postpartum hemorrhage; D62 Acute posthemorrhagic anemia; Z3A.37 37 weeks gestation of pregnancy; Z37.2 Twins, both liveborn
CPT/HCPCS: 36415; 36430; 80053; 82565; 84450; 84460; 85025; 85027; 85610; 85730; 86850; 86900; 86901; 86922; A9270-GY; J0290; J0690; J2060; J2175; J2210; J2300; J2405; J2590; J3010; J7030; J7040; J7042; J7120; P9016